=== PATIENT | female | born 1945 | race Caucasian/White ===

== ENCOUNTER 2017-08-22 10:58 | Inpatient (IN) | payer MEDICARE, MEDICAID ==
[~2017-08-22] VITALS: Ht 154.9 cm; Wt 68.9 kg
[~2017-08-22 10:58] MED LIST: ADVAIR 250-501 EACH INH; DESYREL100 MG PO; MACROBID100 MG ORAL; NEURONTIN300 MG PO; NORCO 10-325 T1 EACH ORAL; PROAIR HFA8.5 GM INH; SPIRIVA18 MCG INH
[2017-08-22 11:15] VITALS: BP 141/76
[2017-08-22] MEDS ORDERED: LORazepam Inj 2mg/ml 1ml IV ONE (11:15)
[2017-08-22] MEDS ORDERED: ASPIRIN325 MG ORAL (11:41)
[2017-08-22] MEDS ORDERED: VENTOLIN HFA18 GM INH (11:41)
[2017-08-22] MEDS ORDERED: ATORVASTATIN CA40 MG ORAL (11:41)
[2017-08-22] MEDS ORDERED: BUDESONIDE0.5 GM PO (11:41)
[2017-08-22] MEDS ORDERED: CLOPIDOGREL75 MG ORAL (11:41)
--- NOTE | 2017-08-22 11:49 | Diagnostic Imaging Report ---
Indication: Dyspnea Comparison: None A single view chest radiograph was obtained. Findings: Some vascular prominence noted centrally. The heart is borderline in size. The exam is limited by rotation. Bones are osteopenic. Aorta is calcified. IMPRESSION: Query mild CHF. Correlate clinically
[2017-08-22 12:15] LABS: BASOPHILS % (AUTO) 0.9 % (0.0-2.0); EOSINOPHILS % (AUTO) 3.1 % (0.0-3.0); HEMATOCRIT 40.6 % (37.0-47.0); LYMPHOCYTES % (AUTO) 15.3 % (20.0-45.0); MEAN CORPUSCULAR VOLUME 89 FL (80-99); MONOCYTES % (AUTO) 3.5 % (1.0-10.0); NEUTROPHILS % (AUTO) 77.2 % (45.0-75.0); PLATELET COUNT 220 K/UL (150-450); RED BLOOD COUNT 4.55 M/UL (4.20-5.40); RED CELL DISTRIBUTION WIDTH 12.8 % (11.6-14.8); WHITE BLOOD COUNT 8.3 K/UL (4.8-10.8)
[2017-08-22] MEDS ORDERED: Levalbuterol Inh UD 1.25mg/0.5ml HHN ONE (12:15)
[2017-08-22] MEDS ORDERED: Solu-MEDROL 125mg Inj IVP ONE (12:15)
[2017-08-22 12:21] LABS: ANION GAP 9 mmol/L (5-15); BLOOD UREA NITROGEN 34 mg/dL (7-18); CALCIUM 8.7 MG/DL (8.5-10.1); CARBON DIOXIDE 27 MMOL/L (21-32); CHLORIDE 103 MMOL/L (98-107); CREATININE 0.8 MG/DL (0.55-1.30); POTASSIUM 4.6 MMOL/L (3.5-5.1); SODIUM 139 MMOL/L (136-145)
[2017-08-22 12:35] LABS: ALANINE AMINOTRANSFERASE 30 U/L (12-78); ALBUMIN 3.8 G/DL (3.4-5.0); ALBUMIN/GLOBULIN RATIO 1.3 (1.0-2.7); ALKALINE PHOSPHATASE 89 U/L (46-116); ASPARTATE AMINO TRANSFERASE 39 U/L (15-37); BILIRUBIN,TOTAL 0.5 MG/DL (0.2-1.0); CKMB 18.4 NG/ML (0.0-3.6); CREATINE KINASE 205 U/L (26-308)
--- NOTE | 2017-08-22 12:58 | Emergency Room Report ---
History of Present Illness General Chief Complaint: General Complaint Source: Patient Present Illness HPI Patient presents with complaints of weakness Spasming of her lower extremities Patient reports that she has been to the emergency room several times with similar complaints She has a history of COPD and was having some shortness of breath as well Denies any chest pain or pleurisy Denies any vomiting Patient feels increased cramping in her legs on the spasming happens Reports that Ativan did help her symptoms however they have again returned Allergies: Coded Allergies: AMPICILLIN (Verified Allergy, Intermediate, 08/26/12) Patient History Past Medical History: see triage record Pertinent Family History: none Reviewed Nursing Documentation: PMH: Agreed; PSxH: Agreed Nursing Documentation-PMH Past Medical History: No History, Except For Hx Cardiac Problems: No Hx Hypertension: No Hx Pacemaker: No Hx Asthma: Yes Hx COPD: Yes Hx Diabetes: No Hx Cancer: Yes - Cervical Cancer Hx Gastrointestinal Problems: No Hx Dialysis: No Hx Neurological Problems: Yes - chronic back pain; ruptured disk Hx Cerebrovascular Accident: No Hx Seizures: No Review of Systems All Other Systems: negative except mentioned in HPI Physical Exam Vital Signs Date Time Temp Pulse Resp B/P (MAP) Pulse Ox O2 Delivery O2 Flow Rate FiO2 08/22/17 11:11 97.3 119 30 110/69 80 Nasal Cannula 3.0 97.3 Sp02 EP Interpretation: reviewed, normal General Appearance: mild distress - anxious and actively tremulous Head: normocephalic, atraumatic Eyes: bilateral eye PERRL, bilateral eye EOMI ENT: hearing grossly normal, normal pharynx, TMs + canals normal, uvula midline Neck: full range of motion, supple, no meningismus, no bony tend Respiratory: no respiratory distress, no retraction, no accessory muscle use, wheezing - bilaterally Cardiovascular #1: normal peripheral pulses, regular rate, rhythm, no edema, no gallop, no JVD, no murmur Gastrointestinal: normal bowel sounds, non tender, soft, no mass, no organomegaly, non-distended, no guarding, no hernia, no pulsatile mass, no rebound Genitourinary: no CVA tenderness Musculoskeletal: other - Patient has episodes of acute spasmodic contractures of lower extremity, at times her upper arms also spasm and contracted Neurologic: oriented x3, responsive, 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, motor strength/ tone normal, sensory intact Psychiatric: mood/affect normal Skin: normal color, no rash, warm/dry, palpation normal Lymphatic: normal inspection, no adenopathy Medical Decision Making Diagnostic Impression: Primary Impression: COPD exacerbation Additional Impression: Elevated troponin ER Course Patient is a fairly complex patient with multiple differential to consideration including but not limited to cardiac cardiopulmonary and vascular emergencies Patient's troponin level is elevated She denies any chest pain at this time Her spasming has improved with the benzodiazepine Patient does take breathing treatments for COPD possible reaction to albuterol however potassium level was normal patient provided with aspirin EKG does not reveal any ST elevations and patient will have inpatient admission and further care , Labs Test 08/22/17 11:24 08/22/17 11:57 Urine Opiates Screen Positive (NEGATIVE) Urine Barbiturates Screen Negative (NEGATIVE) Phencyclidine (PCP) Screen Negative (NEGATIVE) Urine Amphetamines Screen Negative (NEGATIVE) Urine Benzodiazepines Screen Negative (NEGATIVE) Urine Cocaine Screen Negative (NEGATIVE) Urine Marijuana (THC) Screen Negative (NEGATIVE) White Blood Count 8.3 K/UL (4.8-10.8) Red Blood Count 4.55 M/UL (4.20-5.40) Hemoglobin 13.0 G/DL (12.0-16.0) Hematocrit 40.6 % (37.0-47.0) Mean Corpuscular Volume 89 FL (80-99) Mean Corpuscular Hemoglobin 28.6 PG (27.0-31.0) Mean Corpuscular Hemoglobin Concent 32.1 G/DL (32.0-36.0) Red Cell Distribution Width 12.8 % (11.6-14.8) Platelet Count 220 K/UL (150-450) Mean Platelet Volume 6.4 FL (6.5-10.1) Neutrophils (%) (Auto) 77.2 % (45.0-75.0) Lymphocytes (%) (Auto) 15.3 % (20.0-45.0) Monocytes (%) (Auto) 3.5 % (1.0-10.0) Eosinophils (%) (Auto) 3.1 % (0.0-3.0) Basophils (%) (Auto) 0.9 % (0.0-2.0) Sodium Level 139 MMOL/L (136-145) Potassium Level 4.6 MMOL/L (3.5-5.1) Chloride Level 103 MMOL/L (98-107) Carbon Dioxide Level 27 MMOL/L (21-32) Anion Gap 9 mmol/L (5-15) Blood Urea Nitrogen 34 mg/dL (7-18) Creatinine 0.8 MG/DL (0.55-1.30) Estimat Glomerular Filtration Rate mL/min (>60) Glucose Level 125 MG/DL (74-106) Calcium Level 8.7 MG/DL (8.5-10.1) Total Bilirubin 0.5 MG/DL (0.2-1.0) Aspartate Amino Transf (AST/SGOT) 39 U/L (15-37) Alanine Aminotransferase (ALT/SGPT) 30 U/L (12-78) Alkaline Phosphatase 89 U/L (46-116) Total Creatine Kinase 205 U/L (26-308) Creatine Kinase MB 18.4 NG/ML (0.0-3.6) Creatine Kinase MB Relative Index 8.9 Troponin I 1.651 ng/mL (0.000-0.056) Total Protein 6.8 G/DL (6.4-8.2) Albumin 3.8 G/DL (3.4-5.0) Globulin 3.0 g/dL Albumin/Globulin Ratio 1.3 (1.0-2.7) EKG Diagnostic Results Rate: normal Rhythm: NSR ST Segments: other - nnonspecific ST changes Rhythm Strip Diag. Results EP Interpretation: yes Rate: 77 Rhythm: NSR, no PVC's, no ectopy Chest X-Ray Diagnostic Results Chest X-Ray Diagnostic Results : Chest X-Ray Ordered: Yes # of Views/Limited/Complete: 1 View Indication: Chest Pain EP Interpretation: Yes Interpretation: no consolidation, no pneumothorax, other - Borderline cardiomegaly, mild congestion, questionable effusion left lower lobe Impression: Other - mmild congestion Electronically Signed by: Iveth Fairbanks DO Last Vital Signs Date Time Temp Pulse Resp B/P (MAP) Pulse Ox O2 Delivery O2 Flow Rate FiO2 08/22/17 12:45 85 21 92 Nasal Cannula 3.0 08/22/17 11:15 141/76 08/22/17 11:11 97.3 97.3 Status: improved Disposition: ADMITTED INPATIENT Condition: Serious Iveth Fairbanks DO August 22, 2017 12:58
[2017-08-22 14:58] VITALS: BP 116/42
[2017-08-22] MEDS ORDERED: LORazepam Inj 2mg/ml 1ml IV PRN (16:00)
[2017-08-22] MEDS ORDERED: Albuterol ud Inhalation HHN PRN (16:00)
--- NOTE | 2017-08-22 16:20 | Cardiac Electrophysiology PN ---
Subjective Subjective [id number] Objective Last 24 Hour Vital Signs Date Time Temp Pulse Resp B/P (MAP) Pulse Ox O2 Delivery O2 Flow Rate FiO2 08/22/17 14:58 97.0 86 18 116/42 94 Nasal Cannula 3.0 97.0 08/22/17 13:00 79 16 100 Nasal Cannula 3.0 08/22/17 12:45 85 21 92 Nasal Cannula 3.0 08/22/17 12:44 85 21 Nasal Cannula 3.0 08/22/17 11:15 100 18 141/76 92 Nasal Cannula 3.0 08/22/17 11:11 97.3 119 30 110/69 80 Nasal Cannula 3.0 97.3 Laboratory Tests Test 08/22/17 11:24 08/22/17 11:57 Urine Opiates Screen Positive (NEGATIVE) H Urine Barbiturates Screen Negative (NEGATIVE) Phencyclidine (PCP) Screen Negative (NEGATIVE) Urine Amphetamines Screen Negative (NEGATIVE) Urine Benzodiazepines Screen Negative (NEGATIVE) Urine Cocaine Screen Negative (NEGATIVE) Urine Marijuana (THC) Screen Negative (NEGATIVE) White Blood Count 8.3 K/UL (4.8-10.8) Red Blood Count 4.55 M/UL (4.20-5.40) Hemoglobin 13.0 G/DL (12.0-16.0) Hematocrit 40.6 % (37.0-47.0) Mean Corpuscular Volume 89 FL (80-99) Mean Corpuscular Hemoglobin 28.6 PG (27.0-31.0) Mean Corpuscular Hemoglobin Concent 32.1 G/DL (32.0-36.0) Red Cell Distribution Width 12.8 % (11.6-14.8) Platelet Count 220 K/UL (150-450) Mean Platelet Volume 6.4 FL (6.5-10.1) L Neutrophils (%) (Auto) 77.2 % (45.0-75.0) H Lymphocytes (%) (Auto) 15.3 % (20.0-45.0) L Monocytes (%) (Auto) 3.5 % (1.0-10.0) Eosinophils (%) (Auto) 3.1 % (0.0-3.0) H Basophils (%) (Auto) 0.9 % (0.0-2.0) Sodium Level 139 MMOL/L (136-145) Potassium Level 4.6 MMOL/L (3.5-5.1) Chloride Level 103 MMOL/L (98-107) Carbon Dioxide Level 27 MMOL/L (21-32) Anion Gap 9 mmol/L (5-15) Blood Urea Nitrogen 34 mg/dL (7-18) H Creatinine 0.8 MG/DL (0.55-1.30) Estimat Glomerular Filtration Rate mL/min (>60) Glucose Level 125 MG/DL (74-106) H Calcium Level 8.7 MG/DL (8.5-10.1) Total Bilirubin 0.5 MG/DL (0.2-1.0) Aspartate Amino Transf (AST/SGOT) 39 U/L (15-37) H Alanine Aminotransferase (ALT/SGPT) 30 U/L (12-78) Alkaline Phosphatase 89 U/L (46-116) Total Creatine Kinase 205 U/L (26-308) Creatine Kinase MB 18.4 NG/ML (0.0-3.6) H Creatine Kinase MB Relative Index 8.9 Troponin I 1.651 ng/mL (0.000-0.056) Total Protein 6.8 G/DL (6.4-8.2) Albumin 3.8 G/DL (3.4-5.0) Globulin 3.0 g/dL Albumin/Globulin Ratio 1.3 (1.0-2.7) Ramesh Han MD August 22, 2017 16:20
--- NOTE | 2017-08-22 18:15 | Consultation ---
DATE OF CONSULTATION: 08/22/2017 CARDIOLOGY CONSULTATION CONSULTING PHYSICIAN: Ramesh Han M.D. REFERRING PHYSICIAN: Omid Simmons M.D. REASON FOR CONSULTATION: Management of abnormal EKG suggestive of inferior wall ischemia. HISTORY OF PRESENT ILLNESS: The patient is a 71-year-old lady with history of chronic obstructive pulmonary disease and severe back pain and is on multiple analgesics at home. The patient has been to emergency room several times with similar complaints per the ER attending notes. The patient denies any chest pain, syncope, nausea, vomiting, or diaphoresis. The patient was admitted and Cardiology consultation was obtained for further evaluation and management. PAST MEDICAL HISTORY: 1. Chronic obstructive pulmonary disease. 2. History of severe back pain. 3. History of cervical cancer. MEDICATIONS: Per reconciliation. ALLERGIES: She is allergic to ampicillin. FAMILY HISTORY: Noncontributory. REVIEW OF SYSTEMS: Performed and was negative other than what was mentioned in the history of present illness. PHYSICAL EXAMINATION: VITAL SIGNS: Blood pressure 110/67, pulse 110, respirations 18, and she is afebrile. HEAD AND NECK: Shows no JVD or carotid bruits. LUNGS: Clear. CARDIOVASCULAR: Regular S1 and S2 with no gallop or murmur. ABDOMEN: Soft. EXTREMITIES: Without pitting edema. LABORATORY AND DIAGNOSTIC DATA: EKG shows sinus rhythm with inferior T-wave inversions suggestive of ischemia. LABORATORY DATA: Labs show white count of 8.2, hemoglobin 13, hematocrit of 40, and platelet count is 220,000. Sodium 139, potassium 4.3, BUN of 34, creatinine 0.8, and glucose of 125. Troponin is 1.65. ASSESSMENT AND PLAN: 1. Pol-HA-ledjezjry myocardial infarction by elevated troponin of 1.65 for T-wave inversion. However, the patient presents without any chest pain and her major complaint is low back pain. She is also complaining of bilateral unsteady feet. We will repeat the cardiac enzymes and get an echocardiogram. In the meantime, I will keep the patient on aspirin, Plavix, Lipitor, and add beta-angelina to her medical regimen. 2. Chronic obstructive pulmonary disease. 3. Severe back pain with questionable disc rupture history. On analgesics. Thank you very much, Dr. Simmons, for allowing me to participate in the care of this patient. Please do not hesitate to contact me for any questions regarding my evaluation. Ramesh Han M.D. DR: ANA JOB#: [id number] CC:
--- NOTE | 2017-08-22 19:15 | History and Physical Report ---
DATE OF ADMISSION: 08/22/2017 REASON FOR ADMISSION: 1. Mild shortness of breath. 2. Elevated troponin. HISTORY OF PRESENT ILLNESS: The patient is a 71-year-old female, who sees Dr. Omid Simmons on a consistent basis. The patient presented to the emergency room complaining of several days of spasms in her lower legs. The patient had presented to the emergency room several times with complaints of spasms in her lower legs. She has known COPD. She was mildly short of breath. Her main complaint and concern is that her lower extremity/legs have been undergoing some spasms. She denies any current chest pain. No nausea, vomiting, or diarrhea. PAST MEDICAL HISTORY: 1. Hypertension. 2. Coronary artery disease. 3. Hyperlipidemia. 4. COPD. PAST SURGICAL HISTORY: Noncontributory. ALLERGIES: Ampicillin. REVIEW OF SYSTEMS: NEUROLOGIC: The patient denies headache, change in vision, syncope, or presyncopal episodes. CARDIOVASCULAR: No current chest pain, palpitations, or angina. PULMONARY: Mild shortness of breath. Nonproductive cough. GASTROINTESTINAL/GENITOURINARY: No change in urine or bowels habits. No nausea, vomiting or diarrhea. ENDOCRINOLOGY: No night sweats, fevers or chills. MUSCULOSKELETAL: The patient complaining of lower extremity legs periodic spasms. PHYSICAL EXAMINATION: GENERAL: The patient is awake, slightly agitated. VITAL SIGNS: Blood pressure 116/42, respiratory rate 18, temperature 97.0 degrees and 94% on 3 liters nasal cannula. HEENT: Extraocular muscles intact. No lymphadenopathy noted. CARDIOVASCULAR: S1 and S2. No rubs or gallops. PULMONARY: Mild diffuse expiratory wheezing. ABDOMEN: Nondistended and nontender. EXTREMITIES: No edema. SKIN: No rash. LABORATORY AND DIAGNOSTIC DATA: Labs dated 08/22/2017, sodium 139, potassium 4.6, BUN 34, and creatinine 0.8. Calcium 8.7. AST 39 and ALT 30. Troponin I of 1.651. Hemoglobin 13, white cell count 8.3, and platelet count 320. ASSESSMENT AND PLAN: 1. Mild shortness of breath. At this time, the patient does have underlying chronic obstructive pulmonary disease. We will continue inhaler therapy along with consultation to Pulmonary for further evaluation and management. 2. Elevated troponin, currently 1.65. At this time, Cardiology, Dr. Han has been consulted for further evaluation and management. We will continue home doses of aspirin and Plavix, BB and statin. Ant ischemia from EKG possibly noted 3. Hypertension. Continue said regimen. Adjust medications as deemed appropriate. 4. Lower extremity spasms. As I walked to the room, the patient is lying comfortable in no distress. When she saw me coming from behind, she started moving her legs saying that her legs were hurting and that she needed pain medication for her lower extremities. At this time, we will continue to monitor. 5. Deep venous thrombosis prophylaxis with heparin subcutaneous. Dev Silverman MD DR: BRYON JOB#: [id number] CC: RAJINDER
[2017-08-22 20:00] VITALS: BP 136/67
[2017-08-22] MEDS: rOPINIRole 0.25mg tab ORAL SCH (20:31)
[2017-08-22] MEDS: Docusate 100mg cap ORAL SCH (20:32)
[2017-08-22] MEDS: Metoprolol 25mg tab ORAL SCH (20:33)
[2017-08-22] MEDS: Atorvastatin 20mg tab ORAL SCH (20:33)
[2017-08-22] MEDS: TraZODone 100mg tab ORAL SCH (20:34)
[2017-08-22] MEDS: Norco 5mg/325mg tab ORAL PRN (21:26)
[2017-08-22] MEDS: Heparin 5000 units/ml inj SUBQ SCH (21:28)
[2017-08-22] MEDS: Albuterol/Ipratropium 3ml neb HHN SCH (21:31)
[2017-08-23] VITALS: BP 132/60
[2017-08-23 03:33] LABS: BASOPHILS % (AUTO) 1.2 % (0.0-2.0); HEMATOCRIT 39.7 % (37.0-47.0); HEMOGLOBIN 12.8 G/DL (12.0-16.0); LYMPHOCYTES % (AUTO) 23.7 % (20.0-45.0); MEAN CORPUSCULAR VOLUME 89 FL (80-99); MONOCYTES % (AUTO) 9.1 % (1.0-10.0); NEUTROPHILS % (AUTO) 65.9 % (45.0-75.0); PLATELET COUNT 194 K/UL (150-450); RED BLOOD COUNT 4.48 M/UL (4.20-5.40); RED CELL DISTRIBUTION WIDTH 12.6 % (11.6-14.8)
[2017-08-23 03:53] LABS: ANION GAP 5 mmol/L (5-15); BLOOD UREA NITROGEN 30 mg/dL (7-18); CALCIUM 8.4 MG/DL (8.5-10.1); CARBON DIOXIDE 29 MMOL/L (21-32); CHLORIDE 106 MMOL/L (98-107); CHOLESTEROL 159 MG/DL (< 200); CREATINE KINASE 125 U/L (26-308); CREATININE 0.5 MG/DL (0.55-1.30); HDL CHOLESTEROL 75 MG/DL (40-60); POTASSIUM 4.8 MMOL/L (3.5-5.1); SODIUM 140 MMOL/L (136-145); TRIGLYCERIDES 62 MG/DL (30-150)
[2017-08-23 04:00] VITALS: BP 126/59
[2017-08-23] MEDS: Norco 5mg/325mg tab ORAL PRN ×2 (04:24→18:44)
[2017-08-23] MEDS: Heparin 5000 units/ml inj SUBQ SCH ×3 (06:32→21:21)
[2017-08-23 08:00] VITALS: BP 140/75
--- NOTE | 2017-08-23 08:09 | Nephrology Progress Note ---
Assessment/Plan Assessment/Plan 1. Restless Leg- requip started. Resolved - will leave Rx at time of DC 2. ACS- elevated Trop I - will DC patient once cleared by Cardiology as Trop I still elevated but trending down - ASA/BB/statin and Plavix 3. HTN- stable 4. DVT Prophylaxis- heparin sub q Subjective Date patient seen: August 23, 2017 Time patient seen: 08:06 ROS Limited/Unobtainable: No Allergies: Coded Allergies: AMPICILLIN (Verified Allergy, Intermediate, 08/26/12) All Systems: reviewed and negative except above Subjective Patient feeling much better. Legs have stopped restless motion Objective Last 24 Hour Vital Signs Date Time Temp Pulse Resp B/P (MAP) Pulse Ox O2 Delivery O2 Flow Rate FiO2 08/23/17 04:00 66 08/23/17 04:00 97.3 84 20 126/59 96 Nasal Cannula 3.0 97.3 08/23/17 00:00 96.3 87 20 132/60 96 Nasal Cannula 3.0 96.3 08/23/17 00:00 71 08/22/17 21:44 75 18 99 Nasal Cannula 3.0 32 08/22/17 21:34 Nasal Cannula 3.0 32 08/22/17 21:34 96 Nasal Cannula 3.0 32 08/22/17 21:34 75 18 96 Nasal Cannula 3.0 32 08/22/17 20:33 92 136/67 08/22/17 20:00 87 08/22/17 20:00 97.5 92 22 136/67 94 Nasal Cannula 3.0 97.5 08/22/17 16:22 104 08/22/17 16:20 97.0 86 18 116/42 94 Nasal Cannula 3.0 97.0 08/22/17 14:58 97.0 86 18 116/42 94 Nasal Cannula 3.0 97.0 08/22/17 13:00 79 16 100 Nasal Cannula 3.0 08/22/17 12:45 85 21 92 Nasal Cannula 3.0 08/22/17 12:44 85 21 Nasal Cannula 3.0 08/22/17 11:15 100 18 141/76 92 Nasal Cannula 3.0 08/22/17 11:11 97.3 119 30 110/69 80 Nasal Cannula 3.0 97.3 Intake and Output 08/22/17 08/23/17 19:00 07:00 Intake Total 120 ml 120 ml Output Total 250 ml 1 ml Balance -130 ml 119 ml Intake Oral 120 ml 120 ml Output Urine Total 250 ml Stool Total 1 ml # Voids 2 # Bowel Movements 1 2 Laboratory Tests 08/22/17 11:24: Urine Opiates Screen PositiveH, Urine Barbiturates Screen Negative, Phencyclidine (PCP) Screen Negative, Urine Amphetamines Screen Negative, Urine Benzodiazepines Screen Negative, Urine Cocaine Screen Negative, Urine Marijuana (THC) Screen Negative 08/22/17 11:57: White Blood Count 8.3, Red Blood Count 4.55, Hemoglobin 13.0, Hematocrit 40.6, Mean Corpuscular Volume 89, Mean Corpuscular Hemoglobin 28.6, Mean Corpuscular Hemoglobin Concent 32.1, Red Cell Distribution Width 12.8, Platelet Count 220, Mean Platelet Volume 6.4L, Neutrophils (%) (Auto) 77.2H, Lymphocytes (%) (Auto) 15.3L, Monocytes (%) (Auto) 3.5, Eosinophils (%) (Auto) 3.1H, Basophils (%) ( Auto) 0.9, Sodium Level 139, Potassium Level 4.6, Chloride Level 103, Carbon Dioxide Level 27, Anion Gap 9, Blood Urea Nitrogen 34H, Creatinine 0.8, Estimat Glomerular Filtration Rate , Glucose Level 125H, Calcium Level 8.7, Total Bilirubin 0.5, Aspartate Amino Transf (AST/SGOT) 39H, Alanine Aminotransferase ( ALT/SGPT) 30, Alkaline Phosphatase 89, Total Creatine Kinase 205, Creatine Kinase MB 18.4H, Creatine Kinase MB Relative Index 8.9, Troponin I 1.651H, Total Protein 6.8, Albumin 3.8, Globulin 3.0, Albumin/Globulin Ratio 1.3 08/22/17 19:15: Troponin I 1.419H 08/23/17 03:00: White Blood Count 6.0, Red Blood Count 4.48, Hemoglobin 12.8, Hematocrit 39.7, Mean Corpuscular Volume 89, Mean Corpuscular Hemoglobin 28.5, Mean Corpuscular Hemoglobin Concent 32.1, Red Cell Distribution Width 12.6, Platelet Count 194, Mean Platelet Volume 6.2L, Neutrophils (%) (Auto) 65.9, Lymphocytes (%) (Auto) 23.7, Monocytes (%) (Auto) 9.1, Eosinophils (%) (Auto) 0.0, Basophils (%) (Auto ) 1.2, Sodium Level 140, Potassium Level 4.8, Chloride Level 106, Carbon Dioxide Level 29, Anion Gap 5, Blood Urea Nitrogen 30H, Creatinine 0.5L, Estimat Glomerular Filtration Rate , Glucose Level 138H, Calcium Level 8.4L, Total Creatine Kinase 125, Troponin I 0.994H, Triglycerides Level 62, Cholesterol Level 159, LDL Cholesterol 69, HDL Cholesterol 75H, Cholesterol/HDL Ratio 2.1L Height (Feet): 5 Height (Inches): 1.00 Weight (Pounds): 152 General Appearance: no apparent distress, alert EENT: normal ENT inspection, TMs normal Neck: normal alignment, supple Cardiovascular: normal rate, regular rhythm Respiratory/Chest: lungs clear, normal breath sounds Abdomen: non tender, soft Edema: no edema noted Arm (L), no edema noted Arm (R), no edema noted Leg (L), no edema noted Leg (R), no edema noted Pedal (L), no edema noted Pedal (R), no edema noted Generalized Dev Silverman M.D. August 23, 2017 08:09
[2017-08-23] MEDS: Aspirin Baby 81mg ORAL SCH (08:30)
[2017-08-23] MEDS: Metoprolol 25mg tab ORAL SCH ×2 (08:31→20:12)
[2017-08-23] MEDS: rOPINIRole 0.25mg tab ORAL SCH (08:31)
[2017-08-23] MEDS: Docusate 100mg cap ORAL SCH ×2 (08:35→20:11)
--- NOTE | 2017-08-23 09:30 | Consultation ---
DATE OF CONSULTATION: 08/23/2017 PULMONARY CONSULTATION CONSULTING PHYSICIAN: José Brown M.D. REFERRING PHYSICIAN: Dev Silverman M.D. REASON FOR CONSULTATION: COPD with acute exacerbation. HISTORY OF PRESENT ILLNESS: The patient is a 71-year-old female, the patient presented through the ER with leg pain. The patient also presented with shortness of breath. The patient is now being admitted for further care, management, and further evaluation. The patient's care discussed and primary care doctor asked me to kindly evaluate and recommend further. The patient admits to mild cough and mild congestion. The patient does take inhalers on a regular basis at home. The patient has had no falls or trauma. No chest discomfort. X-rays obtained in the emergency room shows possibility of mild pulmonary vascular congestion. The patient's troponin, however, was also elevated on evaluation. PAST MEDICAL HISTORY: Hypertension, coronary artery disease, hyperlipidemia, and COPD. PAST SURGICAL HISTORY: Noncontributory. MEDICATIONS: Reviewed. ALLERGIES: Reviewed. FAMILY HISTORY: Otherwise negative and noncontributory to the above. REVIEW OF SYSTEMS: All 10 points reviewed and otherwise negative. PHYSICAL EXAMINATION: GENERAL: A well-developed female, comfortable at present. The patient is of advanced age, but otherwise clinically stable. VITAL SIGNS: Notable for blood pressure 126/59, pulse 84, temperature 97.3, and saturations 96% on 3 liters. The patient is currently afebrile 97.4. HEENT: Overall negative. The patient's extraocular movements are grossly intact. NECK: No jugular venous distention. LUNGS: Moderate breath sounds. Occasional rhonchi scattered. No clear wheezes. CARDIAC: Normal S1 and S2. Regular rhythm without murmurs, rubs, or gallops. ABDOMEN: Soft, nontender, nondistended. EXTREMITIES: No cyanosis, clubbing, or edema. NEUROLOGIC: Grossly nonfocal. SKIN: Without any rashes. LABORATORY AND DIAGNOSTIC DATA: Laboratory data reviewed. BUN 30 and creatinine 0.5. Troponins are elevated, highest 1.651. The CBC is essentially normal. The urine tox screen positive for opioids. The x-ray is notable for mild edema. IMPRESSION: 1. COPD. 2. Respiratory insufficiency. 3. Mild congestion, possibly acute on chronic congestive heart failure. 4. Elevated troponin. 5. Possible non-STEMI. 6. Lower extremity spasm. RECOMMENDATION: Supportive care. Monitor clinically. Respiratory care. The patient is placed on albuterol. Pain control. Venous ultrasound to confirm negative DVT. DVT Prophylaxis. IV steroids as needed, but no further dosing noted for now, follow clinically. Outpatient pulmonary function testing recommended and we will follow up clinically for further changes and intervention. We will monitor for further optimization and assist with discharge planning. José Brown M.D. DR: GABE JOB#: [id number] CC:
[2017-08-23] MEDS: Albuterol/Ipratropium 3ml neb HHN SCH ×2 (09:51→22:30)
[2017-08-23] MEDS ORDERED: LORazepam 1mg tab ORAL ONE (11:46)
[2017-08-23 12:00] VITALS: BP 138/67
--- NOTE | 2017-08-23 13:42 | Cardiac Electrophysiology PN ---
Assessment/Plan Assessment/Plan 1. [id number] myocardial infarction by elevated troponins of 1.65,1.44, 0.99 and T-wave inversion. However, the patient never had any chest pain and her major complaint is low back pain. Continue aspirin, Plavix, Lipitor, and Lopressor 25 bid Final echo is pending. DW patient the option of cardiac cath with RN present. She refuses cath. Continue medical therapy and possible stress test. 2. Chronic obstructive pulmonary disease. 3. Severe back pain with questionable disc rupture history. On analgesics. MARYANN RN Subjective Subjective Says wants to go home. No CP or SOB. Objective Last 24 Hour Vital Signs Date Time Temp Pulse Resp B/P (MAP) Pulse Ox O2 Delivery O2 Flow Rate FiO2 08/23/17 10:11 89 20 99 Nasal Cannula 3.0 32 08/23/17 09:53 Nasal Cannula 3.0 32 08/23/17 09:51 84 20 95 Nasal Cannula 3.0 32 08/23/17 09:47 95 Nasal Cannula 3.0 32 08/23/17 08:31 72 140/75 08/23/17 04:00 66 08/23/17 04:00 97.3 84 20 126/59 96 Nasal Cannula 3.0 97.3 08/23/17 00:00 96.3 87 20 132/60 96 Nasal Cannula 3.0 96.3 08/23/17 00:00 71 08/22/17 21:44 75 18 99 Nasal Cannula 3.0 32 08/22/17 21:34 Nasal Cannula 3.0 32 08/22/17 21:34 96 Nasal Cannula 3.0 32 08/22/17 21:34 75 18 96 Nasal Cannula 3.0 32 08/22/17 20:33 92 136/67 08/22/17 20:00 87 08/22/17 20:00 97.5 92 22 136/67 94 Nasal Cannula 3.0 97.5 08/22/17 16:22 104 08/22/17 16:20 97.0 86 18 116/42 94 Nasal Cannula 3.0 97.0 08/22/17 14:58 97.0 86 18 116/42 94 Nasal Cannula 3.0 97.0 Intake and Output 08/22/17 08/23/17 19:00 07:00 Intake Total 120 ml 120 ml Output Total 250 ml 1 ml Balance -130 ml 119 ml Intake Oral 120 ml 120 ml Output Urine Total 250 ml Stool Total 1 ml # Voids 2 # Bowel Movements 1 2 Laboratory Tests Test 08/22/17 19:15 08/23/17 03:00 Troponin I 1.419 ng/mL (0.000-0.056) 0.994 ng/mL (0.000-0.056) White Blood Count 6.0 K/UL (4.8-10.8) Red Blood Count 4.48 M/UL (4.20-5.40) Hemoglobin 12.8 G/DL (12.0-16.0) Hematocrit 39.7 % (37.0-47.0) Mean Corpuscular Volume 89 FL (80-99) Mean Corpuscular Hemoglobin 28.5 PG (27.0-31.0) Mean Corpuscular Hemoglobin Concent 32.1 G/DL (32.0-36.0) Red Cell Distribution Width 12.6 % (11.6-14.8) Platelet Count 194 K/UL (150-450) Mean Platelet Volume 6.2 FL (6.5-10.1) L Neutrophils (%) (Auto) 65.9 % (45.0-75.0) Lymphocytes (%) (Auto) 23.7 % (20.0-45.0) Monocytes (%) (Auto) 9.1 % (1.0-10.0) Eosinophils (%) (Auto) 0.0 % (0.0-3.0) Basophils (%) (Auto) 1.2 % (0.0-2.0) Sodium Level 140 MMOL/L (136-145) Potassium Level 4.8 MMOL/L (3.5-5.1) Chloride Level 106 MMOL/L (98-107) Carbon Dioxide Level 29 MMOL/L (21-32) Anion Gap 5 mmol/L (5-15) Blood Urea Nitrogen 30 mg/dL (7-18) H Creatinine 0.5 MG/DL (0.55-1.30) L Estimat Glomerular Filtration Rate mL/min (>60) Glucose Level 138 MG/DL (74-106) H Calcium Level 8.4 MG/DL (8.5-10.1) L Total Creatine Kinase 125 U/L (26-308) Triglycerides Level 62 MG/DL (30-150) Cholesterol Level 159 MG/DL (< 200) LDL Cholesterol 69 mg/dL (<100) HDL Cholesterol 75 MG/DL (40-60) H Cholesterol/HDL Ratio 2.1 (3.3-4.4) L Objective HEAD AND NECK: No JVD or carotid bruits. LUNGS: Clear. CARDIOVASCULAR: Regular S1 and S2 with no gallop or murmur. ABDOMEN: Soft. EXTREMITIES: No pitting edema. Ramesh Han MD August 23, 2017 13:42
[2017-08-23 16:00] VITALS: BP 125/63
[2017-08-23 20:00] VITALS: BP 146/74
[2017-08-23] MEDS: TraZODone 100mg tab ORAL SCH (20:11)
[2017-08-23] MEDS: Atorvastatin 20mg tab ORAL SCH (20:11)
--- NOTE | 2017-08-23 22:33 | Cardiology Report ---
APPROVED REPORT EKG Measurement Heart [id number] Normal sinus rhythm T wave abnormality, consider anterior ischemia Abnormal ECG
--- NOTE | 2017-08-23 23:30 | Consultation ---
DATE OF CONSULTATION: 08/23/2017 CONSULTING PHYSICIAN: Adele Hernandez M.D. HISTORY OF PRESENT ILLNESS: This is a 71-year-old female with a history of anxiety disorder, hypertension, coronary artery disease, hyperlipidemia, COPD and restless legs syndrome, who has been admitted to the hospital for medical stabilization. The patient was recently started on Requip. Apparently, medication initially helped her, however, she stated now she is having more anxiety and more shakes. The patient was having anxiety attacks before the ultrasound today and her whole body was shaking. Ativan was ordered, however, it was not given as the patient after having the panic attacks fell asleep. PAST PSYCHIATRIC HISTORY: She has a history of depression, anxiety, and given trazodone 100 mg at bedtime. No suicidal attempt in the past. No history of violence. PAST MEDICAL HISTORY: UTI, chronic back pain, COPD, elevated troponin, anxiety disorder and depression. ALLERGIES: Penicillin. SUBSTANCE ABUSE HISTORY: No known history of illicit drug use or alcohol. MENTAL STATUS EXAMINATION: The patient is alert and oriented times self, place, and situation. Mood is anxious. Affect is constricted, congruent with mood. Thought process is concrete. Thought content, no suicidal or homicidal ideation. ASSESSMENT: [place] I Anxiety disorder, panic attack. [place] II Deferred. [place] III Restless legs syndrome. [place] IV Low. [place] V Global assessment of functioning is 50. PLAN: 1. The patient will be started on Ativan p.r.n. We will discontinue the Requip. We will discuss with Dr. Silverman. 2. We will continue to follow and readjust the medications. Adele Hernandez M.D. DR: JOHNNY JOB#: [id number] CC:
[2017-08-24] VITALS: BP 141/70
[2017-08-24 04:00] VITALS: BP 129/80
[2017-08-24] MEDS: Norco 5mg/325mg tab ORAL PRN ×3 (05:15→20:27)
[2017-08-24] MEDS: Heparin 5000 units/ml inj SUBQ SCH ×3 (06:26→22:00)
[2017-08-24 08:00] VITALS: BP 138/53
--- NOTE | 2017-08-24 08:38 | Nephrology Progress Note ---
Assessment/Plan Assessment/Plan 1. Restless Leg- Improved on requip, has been DC. Poss to start 0.25mg qd and monitor as patient on [place] - defer management to PSY with anxiolytics and narcotics 2. ACS- elevated Trop I. Patient declined cardiac cath. Once cleared by cardiology will DC patient - ASA/BB/statin and Plavix - LE US results pending to r/o DVT 3. HTN- stable 4. DVT Prophylaxis- heparin sub q Subjective Date patient seen: August 24, 2017 Time patient seen: 08:27 ROS Limited/Unobtainable: No Neurologic/Psychiatric: Reports: anxiety Allergies: Coded Allergies: AMPICILLIN (Verified Allergy, Intermediate, 08/26/12) All Systems: reviewed and negative except above Subjective Patient was overwhelmed yesterday with procedures (ECHO/LE US) and had anxiety attack Objective Last 24 Hour Vital Signs Date Time Temp Pulse Resp B/P (MAP) Pulse Ox O2 Delivery O2 Flow Rate FiO2 08/24/17 04:00 97.3 62 19 129/80 98 Nasal Cannula 3.0 97.3 08/24/17 04:00 53 08/24/17 00:00 96.6 68 22 141/70 97 Nasal Cannula 3.0 96.6 08/24/17 00:00 58 08/23/17 22:41 64 18 99 Nasal Cannula 3.0 32 08/23/17 22:30 59 16 99 Nasal Cannula 3.0 32 08/23/17 22:30 Nasal Cannula 3.0 32 08/23/17 22:30 99 Nasal Cannula 3.0 32 08/23/17 20:12 63 146/74 08/23/17 20:00 66 08/23/17 20:00 97.3 63 20 146/74 96 Nasal Cannula 3.0 97.3 08/23/17 16:00 61 08/23/17 16:00 98.0 62 20 125/63 95 Nasal Cannula 3.0 98.0 08/23/17 12:00 65 08/23/17 12:00 97.8 76 20 138/67 95 Nasal Cannula 3.0 97.8 08/23/17 10:11 89 20 99 Nasal Cannula 3.0 32 08/23/17 09:53 Nasal Cannula 3.0 32 08/23/17 09:51 84 20 95 Nasal Cannula 3.0 32 08/23/17 09:47 95 Nasal Cannula 3.0 32 08/23/17 08:31 72 140/75 Intake and Output 08/23/17 08/24/17 19:00 07:00 Intake Total 720 ml Balance 720 ml Intake Oral 720 ml # Voids 4 # Bowel Movements 4 1 Height (Feet): 5 Height (Inches): 1.00 Weight (Pounds): 152 General Appearance: no apparent distress EENT: normal ENT inspection, TMs normal Neck: normal alignment, supple Cardiovascular: normal rate, regular rhythm Respiratory/Chest: lungs clear, normal breath sounds Abdomen: non tender, soft Edema: no edema noted Arm (L), no edema noted Arm (R), no edema noted Leg (L), no edema noted Leg (R), no edema noted Pedal (L), no edema noted Pedal (R), no edema noted Generalized Dev Silverman M.D. August 24, 2017 08:38
[2017-08-24] MEDS: Docusate 100mg cap ORAL SCH ×2 (08:43→20:31)
[2017-08-24] MEDS: Aspirin Baby 81mg ORAL SCH (08:43)
[2017-08-24] MEDS: LORazepam 1mg tab ORAL PRN ×2 (08:44→17:25)
[2017-08-24] MEDS: Metoprolol 25mg tab ORAL SCH ×2 (08:44→20:32)
[2017-08-24] MEDS: Albuterol/Ipratropium 3ml neb HHN SCH ×2 (09:31→23:05)
[2017-08-24 10:28] LABS: BASOPHILS % (AUTO) 1.5 % (0.0-2.0); EOSINOPHILS % (AUTO) 4.4 % (0.0-3.0); HEMATOCRIT 40.6 % (37.0-47.0); HEMOGLOBIN 13.2 G/DL (12.0-16.0); LYMPHOCYTES % (AUTO) 32.6 % (20.0-45.0); MEAN CORPUSCULAR VOLUME 89 FL (80-99); MONOCYTES % (AUTO) 6.6 % (1.0-10.0); NEUTROPHILS % (AUTO) 54.8 % (45.0-75.0); PLATELET COUNT 208 K/UL (150-450); RED BLOOD COUNT 4.58 M/UL (4.20-5.40); RED CELL DISTRIBUTION WIDTH 12.8 % (11.6-14.8); WHITE BLOOD COUNT 9.4 K/UL (4.8-10.8)
[2017-08-24 10:37] LABS: ANION GAP 7 mmol/L (5-15); BLOOD UREA NITROGEN 24 mg/dL (7-18); CALCIUM 8.3 MG/DL (8.5-10.1); CARBON DIOXIDE 29 MMOL/L (21-32); CHLORIDE 105 MMOL/L (98-107); CREATININE 0.6 MG/DL (0.55-1.30); POTASSIUM 3.5 MMOL/L (3.5-5.1); SODIUM 141 MMOL/L (136-145)
[2017-08-24 12:00] VITALS: BP 118/42
--- NOTE | 2017-08-24 12:07 | Physician Query ---
--------- THIS DOCUMENT IS A PERMANENT PART OF THE MEDICAL RECORD --------- PLEASE COMPLETE THE FORM BEFORE SIGNING Dear Dr. Brown Date 08/24/17 Phy Therapist/CDS: Yu Jaime Phy Therapist/CDS Phone #: [phone] Exercise your independent professional judgment when responding to query. Questions asked do not imply particular answer is desired or expected. We greatly appreciate your clarification on this issue. Clinical Documentation States: "Respiratory Insufficiency" -- documented in Consultation note (08/23/2017) "Saturating 80% on the arrival. Breathing treatment given through Nasal Cannula- - documented in ED Report Clinical Findings Show: Heart Rate: 119 RR:30/min Pulse Oximetry: 80 Please clarify if the patient had any of the following conditions based on the above clinical findings: [] Acute Respiratory Failure [] Acute on Chronic Respiratory Failure [] Chronic (on home O2) Respiratory Failure [] Acute Respiratory Distress [] Acute Respiratory Insufficiency [] Respiratory failure due to trauma [] Respiratory insufficiency due to trauma [] Unable to determine [] Other: Condition Present on Admission: [] Yes [] No []Clinically Undeterminable Please also document in your Progress Notes and/or Discharge Summary and indicate if the condition was present on admission. M.D. DATE & TIME MTDD
--- NOTE | 2017-08-24 15:01 | Cardiac Electrophysiology PN ---
Assessment/Plan Assessment/Plan 1. Hch-[id number] myocardial infarction by elevated troponins of 1.65,1.44, 0.99 and T-wave inversion. However, the patient never had any chest pain and her major complaint is low back pain. Continue aspirin, Plavix, Lipitor, and Lopressor 25 bid Echo EF 55%. She refuses cath. Continue medical therapy 2. Chronic obstructive pulmonary disease with moderate pulmonary HTN 3. Severe back pain with questionable disc rupture history. On analgesics. MARYANN RN Subjective Subjective No CP or SOB or arrhythmias. Has been sneezing. Objective Last 24 Hour Vital Signs Date Time Temp Pulse Resp B/P (MAP) Pulse Ox O2 Delivery O2 Flow Rate FiO2 08/24/17 14:22 97.8 08/24/17 12:00 97.8 97 16 118/42 99 Nasal Cannula 3.0 32 97.8 08/24/17 12:00 77 08/24/17 09:40 63 16 99 Nasal Cannula 3.0 32 08/24/17 09:31 Nasal Cannula 3.0 32 08/24/17 09:31 97 Nasal Cannula 3.0 32 08/24/17 09:31 62 16 97 Nasal Cannula 3.0 32 08/24/17 08:44 60 138/53 08/24/17 08:00 98.2 62 19 138/53 98 Nasal Cannula 3.0 32 98.2 08/24/17 08:00 69 08/24/17 04:00 97.3 62 19 129/80 98 Nasal Cannula 3.0 97.3 08/24/17 04:00 53 08/24/17 00:00 96.6 68 22 141/70 97 Nasal Cannula 3.0 96.6 08/24/17 00:00 58 08/23/17 22:41 64 18 99 Nasal Cannula 3.0 32 08/23/17 22:30 59 16 99 Nasal Cannula 3.0 32 08/23/17 22:30 Nasal Cannula 3.0 32 08/23/17 22:30 99 Nasal Cannula 3.0 32 08/23/17 20:12 63 146/74 08/23/17 20:00 66 08/23/17 20:00 97.3 63 20 146/74 96 Nasal Cannula 3.0 97.3 08/23/17 16:00 61 08/23/17 16:00 98.0 62 20 125/63 95 Nasal Cannula 3.0 98.0 Intake and Output 08/23/17 08/24/17 19:00 07:00 Intake Total 720 ml Balance 720 ml Intake Oral 720 ml # Voids 4 # Bowel Movements 4 1 Laboratory Tests Test 08/24/17 10:15 White Blood Count 9.4 K/UL (4.8-10.8) # Red Blood Count 4.58 M/UL (4.20-5.40) Hemoglobin 13.2 G/DL (12.0-16.0) Hematocrit 40.6 % (37.0-47.0) Mean Corpuscular Volume 89 FL (80-99) Mean Corpuscular Hemoglobin 28.8 PG (27.0-31.0) Mean Corpuscular Hemoglobin Concent 32.4 G/DL (32.0-36.0) Red Cell Distribution Width 12.8 % (11.6-14.8) Platelet Count 208 K/UL (150-450) Mean Platelet Volume 5.2 FL (6.5-10.1) L Neutrophils (%) (Auto) 54.8 % (45.0-75.0) Lymphocytes (%) (Auto) 32.6 % (20.0-45.0) Monocytes (%) (Auto) 6.6 % (1.0-10.0) Eosinophils (%) (Auto) 4.4 % (0.0-3.0) H Basophils (%) (Auto) 1.5 % (0.0-2.0) Sodium Level 141 MMOL/L (136-145) Potassium Level 3.5 MMOL/L (3.5-5.1) Chloride Level 105 MMOL/L (98-107) Carbon Dioxide Level 29 MMOL/L (21-32) Anion Gap 7 mmol/L (5-15) Blood Urea Nitrogen 24 mg/dL (7-18) H Creatinine 0.6 MG/DL (0.55-1.30) Estimat Glomerular Filtration Rate mL/min (>60) Glucose Level 109 MG/DL (74-106) H Calcium Level 8.3 MG/DL (8.5-10.1) L Objective HEAD AND NECK: No JVD LUNGS: Clear CARDIOVASCULAR: Regular S1 and S2 with no gallop or murmur. ABDOMEN: Soft. EXTREMITIES: No pitting edema. Ramesh Han MD August 24, 2017 15:01
--- NOTE | 2017-08-24 15:37 | Pulmonology Progress Note ---
Assessment/Plan Assessment/Plan IMPRESSION: 1. COPD. 2. Respiratory improved 3. CHF 4. Elevated troponin. 5. Possible non-STEMI. 6. Lower extremity spasm. PLAN respiratory care outpatient PFT oxygen recommend to dc beta angelina if able optimize fluid status impression, plan, and exam edited and reviewed in detail care discussed with RN Subjective Allergies: Coded Allergies: AMPICILLIN (Verified Allergy, Intermediate, 08/26/12) Subjective comfortable no distress Objective Last 24 Hour Vital Signs Date Time Temp Pulse Resp B/P (MAP) Pulse Ox O2 Delivery O2 Flow Rate FiO2 08/24/17 14:22 97.8 08/24/17 12:00 97.8 97 16 118/42 99 Nasal Cannula 3.0 32 97.8 08/24/17 12:00 77 08/24/17 09:40 63 16 99 Nasal Cannula 3.0 32 08/24/17 09:31 Nasal Cannula 3.0 32 08/24/17 09:31 97 Nasal Cannula 3.0 32 08/24/17 09:31 62 16 97 Nasal Cannula 3.0 32 08/24/17 08:44 60 138/53 08/24/17 08:00 98.2 62 19 138/53 98 Nasal Cannula 3.0 32 98.2 08/24/17 08:00 69 08/24/17 04:00 97.3 62 19 129/80 98 Nasal Cannula 3.0 97.3 08/24/17 04:00 53 08/24/17 00:00 96.6 68 22 141/70 97 Nasal Cannula 3.0 96.6 08/24/17 00:00 58 08/23/17 22:41 64 18 99 Nasal Cannula 3.0 32 08/23/17 22:30 59 16 99 Nasal Cannula 3.0 32 08/23/17 22:30 Nasal Cannula 3.0 32 08/23/17 22:30 99 Nasal Cannula 3.0 32 08/23/17 20:12 63 146/74 08/23/17 20:00 66 08/23/17 20:00 97.3 63 20 146/74 96 Nasal Cannula 3.0 97.3 08/23/17 16:00 61 08/23/17 16:00 98.0 62 20 125/63 95 Nasal Cannula 3.0 98.0 Intake and Output 08/23/17 08/24/17 19:00 07:00 Intake Total 720 ml Balance 720 ml Intake Oral 720 ml # Voids 4 # Bowel Movements 4 1 Objective HEENT: Overall negative. The patient's extraocular movements are grossly intact. NECK: No jugular venous distention. LUNGS: Moderate breath sounds. no rhonchi or wheezes. CARDIAC: Normal S1 and S2. Regular rhythm without murmurs, rubs, or gallops. ABDOMEN: Soft, nontender, nondistended. EXTREMITIES: No cyanosis, clubbing, or edema. NEUROLOGIC: Grossly nonfocal. SKIN: Without any rashes. alert and comfortable Laboratory Tests 08/24/17 10:15: White Blood Count 9.4#, Red Blood Count 4.58, Hemoglobin 13.2, Hematocrit 40.6, Mean Corpuscular Volume 89, Mean Corpuscular Hemoglobin 28.8, Mean Corpuscular Hemoglobin Concent 32.4, Red Cell Distribution Width 12.8, Platelet Count 208, Mean Platelet Volume 5.2L, Neutrophils (%) (Auto) 54.8, Lymphocytes (%) (Auto) 32.6, Monocytes (%) (Auto) 6.6, Eosinophils (%) (Auto) 4.4H, Basophils (%) (Auto ) 1.5, Sodium Level 141, Potassium Level 3.5, Chloride Level 105, Carbon Dioxide Level 29, Anion Gap 7, Blood Urea Nitrogen 24H, Creatinine 0.6, Estimat Glomerular Filtration Rate , Glucose Level 109H, Calcium Level 8.3L Current Medications Medications (Trade) Dose Ordered Sig/[place] Route PRN Reason Start Time Stop Time Status Last Admin Dose Admin Acetaminophen (Tylenol) 650 mg Q4H PRN ORAL Mild Pain (Pain Scale 1-3) 08/22/17 16:00 09/21/17 15:59 Acetaminophen/ Hydrocodone Bitart ([place] 5/325) 1 tab Q6H PRN ORAL Moderate Pain (Pain Scale 4-6) 08/22/17 21:00 08/29/17 20:59 08/24/17 14:22 Albuterol Sulfate (Proventil) 2.5 mg Q12H PRN HHN Shortness of Breath 08/22/17 16:00 08/27/17 15:59 Albuterol/ Ipratropium (Albuterol/ Ipratropium) 3 ml BIDRT HHN 08/22/17 22:00 08/27/17 21:59 08/24/17 09:31 Aspirin (ASA) 81 mg DAILY ORAL 08/23/17 09:00 09/22/17 08:59 08/24/17 08:43 Atorvastatin Calcium (Lipitor) 40 mg BEDTIME ORAL 08/22/17 21:00 09/21/17 20:59 08/23/17 20:11 Clopidogrel Bisulfate (Plavix) 75 mg DAILY ORAL 08/23/17 09:00 09/22/17 08:59 08/24/17 08:44 Dextrose (Dextrose 50%) 25 ml STAT PRN IV Hypoglycemia 08/22/17 16:00 09/21/17 15:59 Dextrose (Dextrose 50%) 50 ml STAT PRN IV Hypoglycemia 08/22/17 16:00 09/21/17 15:59 Docusate Sodium (Colace) 100 mg EVERY 12 HOURS ORAL 08/22/17 21:00 09/21/17 20:59 08/24/17 08:43 Gabapentin (Neurontin) 300 mg THREE TIMES A DAY ORAL 08/22/17 18:00 09/21/17 17:59 08/24/17 13:21 Heparin Sodium (Porcine) (Heparin 5000 units/ml) 5,000 units EVERY 8 HOURS SUBQ 08/22/17 22:00 09/21/17 21:59 08/24/17 13:24 Lorazepam (Ativan) 2 mg Q6HR PRN ORAL For Anxiety 08/23/17 10:15 08/30/17 10:14 08/24/17 08:44 Metoprolol Tartrate (Lopressor) 25 mg Q12HR ORAL 08/22/17 21:00 09/21/17 20:59 08/23/17 20:12 Ondansetron HCl (Zofran) 4 mg Q6H PRN IVP Nausea & Vomiting 08/22/17 16:00 09/21/17 15:59 Trazodone HCl (Desyrel) 100 mg BEDTIME ORAL 08/22/17 21:00 09/21/17 20:59 08/23/17 20:11 José Brown MD August 24, 2017 15:37
[2017-08-24 16:00] VITALS: BP 132/84
[2017-08-24 20:00] VITALS: BP 134/67
[2017-08-24] MEDS: Atorvastatin 20mg tab ORAL SCH (20:31)
[2017-08-24] MEDS: TraZODone 100mg tab ORAL SCH (20:32)
[2017-08-25] VITALS: BP 155/73
[2017-08-25] MEDS: LORazepam 1mg tab ORAL PRN ×3 (00:17→14:42)
[2017-08-25 04:00] VITALS: BP 114/52
[2017-08-25] MEDS: Norco 5mg/325mg tab ORAL PRN ×4 (04:03→22:58)
[2017-08-25] MEDS: Heparin 5000 units/ml inj SUBQ SCH ×3 (06:00→21:52)
--- NOTE | 2017-08-25 06:41 | Pulmonology Progress Note ---
Assessment/Plan Assessment/Plan IMPRESSION: 1. COPD. 2. Respiratory improved 3. CHF 4. Elevated troponin. 5. Possible non-STEMI. 6. Lower extremity spasm. PLAN respiratory care outpatient PFT and follow up recommended oxygen for comfort recommend to dc beta angelina if able to avoid bronchospasm optimize fluid status recommend spiriva on discharge but need to assess lung function for further recommendations impression, plan, and exam edited and reviewed in detail care discussed with RN Subjective Allergies: Coded Allergies: AMPICILLIN (Verified Allergy, Intermediate, 08/26/12) Subjective comfortable no distress overnight rn notes reviewed Objective Last 24 Hour Vital Signs Date Time Temp Pulse Resp B/P (MAP) Pulse Ox O2 Delivery O2 Flow Rate FiO2 08/25/17 04:00 66 08/25/17 04:00 97.8 63 20 114/52 94 Nasal Cannula 3.0 32 97.8 08/25/17 00:00 97.9 70 20 155/73 95 Nasal Cannula 3.0 32 97.9 08/25/17 00:00 63 08/24/17 23:16 62 16 99 Nasal Cannula 3.0 32 08/24/17 23:05 66 16 97 Nasal Cannula 3.0 32 08/24/17 20:32 70 134/67 08/24/17 20:00 79 08/24/17 20:00 99.2 70 20 134/67 97 Nasal Cannula 3.0 32 99.2 08/24/17 19:02 96 Nasal Cannula 3.0 32 08/24/17 19:02 Nasal Cannula 3.0 32 08/24/17 16:00 71 08/24/17 16:00 98.3 74 16 132/84 99 Nasal Cannula 3.0 32 98.3 08/24/17 15:21 97.8 08/24/17 14:22 97.8 08/24/17 12:00 97.8 97 16 118/42 99 Nasal Cannula 3.0 32 97.8 08/24/17 12:00 77 08/24/17 09:40 63 16 99 Nasal Cannula 3.0 32 08/24/17 09:31 Nasal Cannula 3.0 32 08/24/17 09:31 97 Nasal Cannula 3.0 32 08/24/17 09:31 62 16 97 Nasal Cannula 3.0 32 08/24/17 08:44 60 138/53 08/24/17 08:00 98.2 62 19 138/53 98 Nasal Cannula 3.0 32 98.2 08/24/17 08:00 69 Intake and Output 08/24/17 08/25/17 19:00 07:00 Intake Total 500 ml Output Total 6 ml Balance 494 ml Intake Oral 500 ml Output Urine Total 5 ml Stool Total 1 ml # Bowel Movements 1 Objective HEENT: Overall negative. The patient's extraocular movements are grossly intact. NECK: No jugular venous distention. LUNGS: Moderate breath sounds. no rhonchi or wheezes. CARDIAC: Normal S1 and S2. Regular rhythm without murmurs, rubs, or gallops. ABDOMEN: Soft, nontender, nondistended. EXTREMITIES: No cyanosis, clubbing, or edema. NEUROLOGIC: Grossly nonfocal. SKIN: Without any rashes. alert and comfortable Laboratory Tests 08/24/17 10:15: White Blood Count 9.4#, Red Blood Count 4.58, Hemoglobin 13.2, Hematocrit 40.6, Mean Corpuscular Volume 89, Mean Corpuscular Hemoglobin 28.8, Mean Corpuscular Hemoglobin Concent 32.4, Red Cell Distribution Width 12.8, Platelet Count 208, Mean Platelet Volume 5.2L, Neutrophils (%) (Auto) 54.8, Lymphocytes (%) (Auto) 32.6, Monocytes (%) (Auto) 6.6, Eosinophils (%) (Auto) 4.4H, Basophils (%) (Auto ) 1.5, Sodium Level 141, Potassium Level 3.5, Chloride Level 105, Carbon Dioxide Level 29, Anion Gap 7, Blood Urea Nitrogen 24H, Creatinine 0.6, Estimat Glomerular Filtration Rate , Glucose Level 109H, Calcium Level 8.3L Current Medications Medications (Trade) Dose Ordered Sig/[place] Route PRN Reason Start Time Stop Time Status Last Admin Dose Admin Acetaminophen (Tylenol) 650 mg Q4H PRN ORAL Mild Pain (Pain Scale 1-3) 08/22/17 16:00 09/21/17 15:59 Acetaminophen/ Hydrocodone Bitart ([place] 5/325) 1 tab Q6H PRN ORAL Moderate Pain (Pain Scale 4-6) 08/22/17 21:00 08/29/17 20:59 08/25/17 04:03 Albuterol Sulfate (Proventil) 2.5 mg Q12H PRN HHN Shortness of Breath 08/22/17 16:00 08/27/17 15:59 Albuterol/ Ipratropium (Albuterol/ Ipratropium) 3 ml BIDRT HHN 08/22/17 22:00 08/27/17 21:59 08/24/17 23:05 Aspirin (ASA) 81 mg DAILY ORAL 08/23/17 09:00 09/22/17 08:59 08/24/17 08:43 Atorvastatin Calcium (Lipitor) 40 mg BEDTIME ORAL 08/22/17 21:00 09/21/17 20:59 08/24/17 20:31 Clopidogrel Bisulfate (Plavix) 75 mg DAILY ORAL 08/23/17 09:00 09/22/17 08:59 08/24/17 08:44 Dextrose (Dextrose 50%) 25 ml STAT PRN IV Hypoglycemia 08/22/17 16:00 09/21/17 15:59 Dextrose (Dextrose 50%) 50 ml STAT PRN IV Hypoglycemia 08/22/17 16:00 09/21/17 15:59 Docusate Sodium (Colace) 100 mg EVERY 12 HOURS ORAL 08/22/17 21:00 09/21/17 20:59 08/24/17 20:31 Gabapentin (Neurontin) 300 mg THREE TIMES A DAY ORAL 08/22/17 18:00 09/21/17 17:59 08/24/17 17:25 Heparin Sodium (Porcine) (Heparin 5000 units/ml) 5,000 units EVERY 8 HOURS SUBQ 08/22/17 22:00 09/21/17 21:59 08/24/17 13:24 Lorazepam (Ativan) 2 mg Q6HR PRN ORAL For Anxiety 08/23/17 10:15 08/30/17 10:14 08/25/17 00:17 Metoprolol Tartrate (Lopressor) 25 mg Q12HR ORAL 08/22/17 21:00 09/21/17 20:59 08/24/17 20:32 Ondansetron HCl (Zofran) 4 mg Q6H PRN IVP Nausea & Vomiting 08/22/17 16:00 09/21/17 15:59 Trazodone HCl (Desyrel) 100 mg BEDTIME ORAL 08/22/17 21:00 09/21/17 20:59 08/24/17 20:32 José Brown MD August 25, 2017 06:41
[2017-08-25 08:00] VITALS: BP 151/111
[2017-08-25 08:01] LABS: EOSINOPHILS % (AUTO) 4.9 % (0.0-3.0); HEMATOCRIT 41.6 % (37.0-47.0); HEMOGLOBIN 13.1 G/DL (12.0-16.0); LYMPHOCYTES % (AUTO) 28.8 % (20.0-45.0); MEAN CORPUSCULAR VOLUME 90 FL (80-99); MONOCYTES % (AUTO) 7.9 % (1.0-10.0); NEUTROPHILS % (AUTO) 56.4 % (45.0-75.0); PLATELET COUNT 194 K/UL (150-450); RED BLOOD COUNT 4.64 M/UL (4.20-5.40); RED CELL DISTRIBUTION WIDTH 13.2 % (11.6-14.8); WHITE BLOOD COUNT 8.9 K/UL (4.8-10.8)
[2017-08-25] MEDS: Aspirin Baby 81mg ORAL SCH (08:05)
[2017-08-25] MEDS: Metoprolol 25mg tab ORAL SCH ×2 (08:06→21:53)
[2017-08-25] MEDS: Docusate 100mg cap ORAL SCH ×2 (08:06→21:52)
[2017-08-25 08:57] LABS: ANION GAP 11 mmol/L (5-15); BLOOD UREA NITROGEN 19 mg/dL (7-18); CALCIUM 8.2 MG/DL (8.5-10.1); CARBON DIOXIDE 25 MMOL/L (21-32); CHLORIDE 105 MMOL/L (98-107); CREATININE 0.4 MG/DL (0.55-1.30); POTASSIUM 4.3 MMOL/L (3.5-5.1); SODIUM 140 MMOL/L (136-145)
--- NOTE | 2017-08-25 09:07 | Nephrology Progress Note ---
Assessment/Plan Assessment/Plan 1. Restless Leg - defer management to PSY with anxiolytics and narcotics 2. ACS- elevated Trop I. Patient declined cardiac cath. Plan for DC today if cleared by cardiology - ASA/BB/statin and Plavix - LE US results/report within normal limits 3. HTN- stable 4. DVT Prophylaxis- heparin sub q 5. COPD- mgmt per PULM - oupt spiriva and PFTs and f/u with Pulm Subjective Date patient seen: August 25, 2017 Time patient seen: 08:56 ROS Limited/Unobtainable: Yes Allergies: Coded Allergies: AMPICILLIN (Verified Allergy, Intermediate, 08/26/12) Subjective Patient sleeping comfortably Objective Last 24 Hour Vital Signs Date Time Temp Pulse Resp B/P (MAP) Pulse Ox O2 Delivery O2 Flow Rate FiO2 08/25/17 08:06 71 151/111 08/25/17 04:00 66 08/25/17 04:00 97.8 63 20 114/52 94 Nasal Cannula 3.0 32 97.8 08/25/17 00:00 97.9 70 20 155/73 95 Nasal Cannula 3.0 32 97.9 08/25/17 00:00 63 08/24/17 23:16 62 16 99 Nasal Cannula 3.0 32 08/24/17 23:05 66 16 97 Nasal Cannula 3.0 32 08/24/17 20:32 70 134/67 08/24/17 20:00 79 08/24/17 20:00 99.2 70 20 134/67 97 Nasal Cannula 3.0 32 99.2 08/24/17 19:02 96 Nasal Cannula 3.0 32 08/24/17 19:02 Nasal Cannula 3.0 32 08/24/17 16:00 71 08/24/17 16:00 98.3 74 16 132/84 99 Nasal Cannula 3.0 32 98.3 08/24/17 15:21 97.8 08/24/17 14:22 97.8 08/24/17 12:00 97.8 97 16 118/42 99 Nasal Cannula 3.0 32 97.8 08/24/17 12:00 77 08/24/17 09:40 63 16 99 Nasal Cannula 3.0 32 08/24/17 09:31 Nasal Cannula 3.0 32 08/24/17 09:31 97 Nasal Cannula 3.0 32 08/24/17 09:31 62 16 97 Nasal Cannula 3.0 32 Intake and Output 08/24/17 08/25/17 19:00 07:00 Intake Total 500 ml Output Total 6 ml Balance 494 ml Intake Oral 500 ml Output Urine Total 5 ml Stool Total 1 ml # Voids 3 # Bowel Movements 1 Laboratory Tests 08/24/17 10:15: White Blood Count 9.4#, Red Blood Count 4.58, Hemoglobin 13.2, Hematocrit 40.6, Mean Corpuscular Volume 89, Mean Corpuscular Hemoglobin 28.8, Mean Corpuscular Hemoglobin Concent 32.4, Red Cell Distribution Width 12.8, Platelet Count 208, Mean Platelet Volume 5.2L, Neutrophils (%) (Auto) 54.8, Lymphocytes (%) (Auto) 32.6, Monocytes (%) (Auto) 6.6, Eosinophils (%) (Auto) 4.4H, Basophils (%) (Auto ) 1.5, Sodium Level 141, Potassium Level 3.5, Chloride Level 105, Carbon Dioxide Level 29, Anion Gap 7, Blood Urea Nitrogen 24H, Creatinine 0.6, Estimat Glomerular Filtration Rate , Glucose Level 109H, Calcium Level 8.3L 08/25/17 07:20: White Blood Count 8.9, Red Blood Count 4.64, Hemoglobin 13.1, Hematocrit 41.6, Mean Corpuscular Volume 90, Mean Corpuscular Hemoglobin 28.1, Mean Corpuscular Hemoglobin Concent 31.4L, Red Cell Distribution Width 13.2, Platelet Count 194, Mean Platelet Volume 5.8L, Neutrophils (%) (Auto) 56.4, Lymphocytes (%) (Auto) 28.8, Monocytes (%) (Auto) 7.9, Eosinophils (%) (Auto) 4.9H, Basophils (%) (Auto ) 2.0, Sodium Level [Pending], Potassium Level [Pending], Chloride Level [ Pending], Carbon Dioxide Level [Pending], Blood Urea Nitrogen [Pending], Creatinine [Pending], Estimat Glomerular Filtration Rate [Pending], Glucose Level [Pending], Calcium Level [Pending] Height (Feet): 5 Height (Inches): 1.00 Weight (Pounds): 152 General Appearance: WD/WN EENT: normal ENT inspection Neck: normal alignment, normal inspection Cardiovascular: normal rate, regular rhythm Respiratory/Chest: lungs clear, normal breath sounds Abdomen: normal bowel sounds, non tender, soft Edema: no edema noted Arm (L), no edema noted Arm (R), no edema noted Leg (L), no edema noted Leg (R), no edema noted Pedal (L), no edema noted Pedal (R), no edema noted Generalized Dev Silverman M.D. August 25, 2017 09:07
[2017-08-25] MEDS: Albuterol/Ipratropium 3ml neb HHN SCH ×2 (09:55→20:47)
[2017-08-25 12:00] VITALS: BP 106/63
[2017-08-25 16:00] VITALS: BP 153/68
[2017-08-25 20:29] VITALS: BP 121/74
[2017-08-25] MEDS: Atorvastatin 20mg tab ORAL SCH (21:51)
[2017-08-25] MEDS: TraZODone 100mg tab ORAL SCH (21:52)
[2017-08-26 00:50] VITALS: BP 132/64
[2017-08-26] MEDS: LORazepam 1mg tab ORAL PRN ×2 (01:48→12:02)
[2017-08-26 04:00] VITALS: BP 164/70
[2017-08-26] MEDS: Norco 5mg/325mg tab ORAL PRN ×4 (04:33→21:37)
[2017-08-26] MEDS: Heparin 5000 units/ml inj SUBQ SCH (05:55)
[2017-08-26 08:00] VITALS: BP 116/62
--- NOTE | 2017-08-26 08:04 | Pulmonology Progress Note ---
Assessment/Plan Assessment/Plan IMPRESSION: 1. COPD. 2. Respiratory improved 3. CHF 4. Elevated troponin. 5. Possible non-STEMI. possible CAD 6. Lower extremity spasm. PLAN respiratory care as is outpatient PFT and follow up recommended oxygen for comfort refuses transfer to [facility] for cath optimize fluid status recommend spiriva on discharge but need to assess lung function for further recommendations ok to dc per pulm impression, plan, and exam edited and reviewed in detail care discussed with RN Subjective Allergies: Coded Allergies: AMPICILLIN (Verified Allergy, Intermediate, 08/26/12) Subjective comfortable no distress overnight rn notes reviewed patient wants to discuss dc Objective Last 24 Hour Vital Signs Date Time Temp Pulse Resp B/P (MAP) Pulse Ox O2 Delivery O2 Flow Rate FiO2 08/26/17 04:00 97.0 72 20 164/70 97 Nasal Cannula 97.0 08/26/17 04:00 58 08/26/17 00:50 98.9 101 20 132/64 97 Nasal Cannula 98.9 08/26/17 00:49 58 08/25/17 21:53 75 132/64 08/25/17 20:47 Nasal Cannula 3.0 32 08/25/17 20:47 Nasal Cannula 3.0 32 08/25/17 20:29 98.9 101 20 121/74 Room Air 98.9 08/25/17 19:02 Nasal Cannula 3.0 32 08/25/17 19:02 97 Nasal Cannula 3.0 32 08/25/17 17:41 97.1 08/25/17 16:42 97.1 08/25/17 16:00 98.1 77 16 153/68 98 Nasal Cannula 3.0 32 98.1 08/25/17 16:00 73 08/25/17 12:00 97.1 62 16 106/63 98 Nasal Cannula 3.0 32 97.1 08/25/17 12:00 68 08/25/17 10:06 97.4 08/25/17 10:03 58 16 98 Nasal Cannula 3.0 32 08/25/17 09:55 Nasal Cannula 3.0 32 08/25/17 09:55 61 16 99 Nasal Cannula 3.0 32 08/25/17 09:55 99 Nasal Cannula 3.0 32 08/25/17 08:06 71 151/111 Intake and Output 08/25/17 08/26/17 19:00 07:00 Intake Total 720 ml Output Total 350 ml Balance 370 ml Intake Oral 720 ml Output Urine Total 350 ml # Voids 4 Objective HEENT: Overall negative. The patient's extraocular movements are grossly intact. NECK: No jugular venous distention. LUNGS: Moderate breath sounds. no rhonchi or wheezes. CARDIAC: Normal S1 and S2. Regular rhythm without murmurs, rubs, or gallops. ABDOMEN: Soft, nontender, nondistended. EXTREMITIES: No cyanosis, clubbing, or edema. NEUROLOGIC: Grossly nonfocal. SKIN: Without any rashes. alert and comfortable Current Medications Medications (Trade) Dose Ordered Sig/[place] Route PRN Reason Start Time Stop Time Status Last Admin Dose Admin Acetaminophen (Tylenol) 650 mg Q4H PRN ORAL Mild Pain (Pain Scale 1-3) 08/22/17 16:00 09/21/17 15:59 Acetaminophen/ Hydrocodone Bitart ([place] 5/325) 1 tab Q6H PRN ORAL Moderate Pain (Pain Scale 4-6) 08/22/17 21:00 08/29/17 20:59 08/26/17 04:33 Albuterol Sulfate (Proventil) 2.5 mg Q12H PRN HHN Shortness of Breath 08/22/17 16:00 08/27/17 15:59 Albuterol/ Ipratropium (Albuterol/ Ipratropium) 3 ml BIDRT HHN 08/22/17 22:00 08/27/17 21:59 08/25/17 09:55 Aspirin (ASA) 81 mg DAILY ORAL 08/23/17 09:00 09/22/17 08:59 08/25/17 08:05 Atorvastatin Calcium (Lipitor) 40 mg BEDTIME ORAL 08/22/17 21:00 09/21/17 20:59 08/25/17 21:51 Clopidogrel Bisulfate (Plavix) 75 mg DAILY ORAL 08/23/17 09:00 09/22/17 08:59 08/25/17 08:05 Dextrose (Dextrose 50%) 25 ml STAT PRN IV Hypoglycemia 08/22/17 16:00 09/21/17 15:59 Dextrose (Dextrose 50%) 50 ml STAT PRN IV Hypoglycemia 08/22/17 16:00 09/21/17 15:59 Docusate Sodium (Colace) 100 mg EVERY 12 HOURS ORAL 5/24/18 21:00 09/21/17 20:59 08/25/17 21:52 Gabapentin (Neurontin) 300 mg THREE TIMES A DAY ORAL 08/22/17 18:00 09/21/17 17:59 08/25/17 17:30 Heparin Sodium (Porcine) (Heparin 5000 units/ml) 5,000 units EVERY 8 HOURS SUBQ 08/22/17 22:00 09/21/17 21:59 08/26/17 05:55 Lorazepam (Ativan) 2 mg Q6HR PRN ORAL For Anxiety 08/23/17 10:15 08/30/17 10:14 08/26/17 01:48 Metoprolol Tartrate (Lopressor) 25 mg Q12HR ORAL 08/22/17 21:00 09/21/17 20:59 08/25/17 21:53 Ondansetron HCl (Zofran) 4 mg Q6H PRN IVP Nausea & Vomiting 08/22/17 16:00 09/21/17 15:59 Trazodone HCl (Desyrel) 100 mg BEDTIME ORAL 08/22/17 21:00 09/21/17 20:59 08/25/17 21:52 José Brown MD August 26, 2017 08:04
--- NOTE | 2017-08-26 08:36 | Nephrology Progress Note ---
Assessment/Plan Assessment/Plan 1. Restless Leg - defer management to PSY with anxiolytics and narcotics Rx/treatment 2. ACS- elevated Trop I. Patient has changed her mind and is willing to undergo a heart cath. Await transfer per retirement plan specialist - ASA/BB/statin and Plavix - LE US results/report within normal limits 3. HTN- stable 4. DVT Prophylaxis- heparin sub q 5. COPD- mgmt per PULM - oupt spiriva and PFTs and f/u with Pulm post DC Subjective Date patient seen: August 26, 2017 Time patient seen: 08:32 ROS Limited/Unobtainable: No Allergies: Coded Allergies: AMPICILLIN (Verified Allergy, Intermediate, 08/26/12) All Systems: reviewed and negative except above Subjective Patient in no distress. Back to baseline Objective Last 24 Hour Vital Signs Date Time Temp Pulse Resp B/P (MAP) Pulse Ox O2 Delivery O2 Flow Rate FiO2 08/26/17 04:00 97.0 72 20 164/70 97 Nasal Cannula 97.0 08/26/17 04:00 58 08/26/17 00:50 98.9 101 20 132/64 97 Nasal Cannula 98.9 08/26/17 00:49 58 08/25/17 21:53 75 132/64 08/25/17 20:47 Nasal Cannula 3.0 32 08/25/17 20:47 Nasal Cannula 3.0 32 08/25/17 20:29 98.9 101 20 121/74 Room Air 98.9 08/25/17 19:02 Nasal Cannula 3.0 32 08/25/17 19:02 97 Nasal Cannula 3.0 32 08/25/17 17:41 97.1 08/25/17 16:42 97.1 08/25/17 16:00 98.1 77 16 153/68 98 Nasal Cannula 3.0 32 98.1 08/25/17 16:00 73 08/25/17 12:00 97.1 62 16 106/63 98 Nasal Cannula 3.0 32 97.1 08/25/17 12:00 68 08/25/17 10:06 97.4 08/25/17 10:03 58 16 98 Nasal Cannula 3.0 32 08/25/17 09:55 Nasal Cannula 3.0 32 08/25/17 09:55 61 16 99 Nasal Cannula 3.0 32 08/25/17 09:55 99 Nasal Cannula 3.0 32 Intake and Output 08/25/17 08/26/17 19:00 07:00 Intake Total 720 ml Output Total 350 ml Balance 370 ml Intake Oral 720 ml Output Urine Total 350 ml # Voids 4 Height (Feet): 5 Height (Inches): 1.00 Weight (Pounds): 152 General Appearance: no apparent distress, alert EENT: PERRL/EOMI, normal ENT inspection Neck: normal alignment, supple Cardiovascular: normal rate, regular rhythm Respiratory/Chest: lungs clear, normal breath sounds Abdomen: normal bowel sounds, non tender, soft Edema: no edema noted Arm (L), no edema noted Arm (R), no edema noted Leg (L), no edema noted Leg (R), no edema noted Pedal (L), no edema noted Pedal (R), no edema noted Generalized Dev Silverman M.D. August 26, 2017 08:36
[2017-08-26] MEDS: Docusate 100mg cap ORAL SCH ×2 (09:00→21:35)
[2017-08-26] MEDS: Aspirin Baby 81mg ORAL SCH (09:10)
[2017-08-26] MEDS: Metoprolol 25mg tab ORAL SCH ×2 (09:12→21:35)
[2017-08-26] MEDS: Albuterol/Ipratropium 3ml neb HHN SCH ×2 (09:53→19:44)
[2017-08-26 12:00] VITALS: BP 123/68
--- NOTE | 2017-08-26 12:16 | Cardiac Electrophysiology PN ---
Assessment/Plan Assessment/Plan 1. [id number] myocardial infarction by elevated troponins of 1.65,1.44, 0.99 and T-wave inversion. However, the patient never had any chest pain and her major complaint is low back pain. Continue aspirin, Plavix, Lipitor, and Lopressor 25 bid Echo EF 55%. Now wants cardiac cath. Continue medical therapy. Will transfer to [facility] 2. Chronic obstructive pulmonary disease with moderate pulmonary HTN 3. Severe back pain with questionable disc rupture history. On analgesics. MARYANN RN Subjective Subjective No CP or SOB or arrhythmias. Now agreeable for cardiac cath. Objective Last 24 Hour Vital Signs Date Time Temp Pulse Resp B/P (MAP) Pulse Ox O2 Delivery O2 Flow Rate FiO2 08/26/17 10:05 59 16 98 Nasal Cannula 3.0 32 08/26/17 09:54 64 16 93 Room Air 08/26/17 09:12 116 116/62 08/26/17 08:55 Room Air 08/26/17 08:54 92 Room Air 08/26/17 08:00 73 08/26/17 08:00 97.2 116 20 116/62 92 Nasal Cannula 97.2 08/26/17 04:00 97.0 72 20 164/70 97 Nasal Cannula 97.0 08/26/17 04:00 58 08/26/17 00:50 98.9 101 20 132/64 97 Nasal Cannula 98.9 08/26/17 00:49 58 08/25/17 21:53 75 132/64 08/25/17 20:47 Nasal Cannula 3.0 32 08/25/17 20:47 Nasal Cannula 3.0 32 08/25/17 20:29 98.9 101 20 121/74 Room Air 98.9 08/25/17 19:02 Nasal Cannula 3.0 32 08/25/17 19:02 97 Nasal Cannula 3.0 32 08/25/17 17:41 97.1 08/25/17 16:42 97.1 08/25/17 16:00 98.1 77 16 153/68 98 Nasal Cannula 3.0 32 98.1 08/25/17 16:00 73 Intake and Output 08/25/17 08/26/17 19:00 07:00 Intake Total 720 ml Output Total 350 ml Balance 370 ml Intake Oral 720 ml Output Urine Total 350 ml # Voids 4 Objective HEAD AND NECK: No JVD LUNGS: Clear CARDIOVASCULAR: Regular S1 and S2 with no gallop or murmur. ABDOMEN: Soft. EXTREMITIES: No pitting edema. Ramesh Han MD August 26, 2017 12:16
[2017-08-26 16:00] VITALS: BP 140/64
[2017-08-26] MEDS ORDERED: Heparin 5000 units/ml inj SUBQ SCH (18:00)
[2017-08-26 20:00] VITALS: BP 145/68
[2017-08-26] MEDS: TraZODone 100mg tab ORAL SCH (21:35)
[2017-08-26] MEDS: Atorvastatin 20mg tab ORAL SCH (21:35)
[2017-08-27] VITALS: BP 101/50
[2017-08-27] MEDS: LORazepam 1mg tab ORAL PRN (01:08)
[2017-08-27 04:00] VITALS: BP 103/60
[2017-08-27] MEDS: Norco 5mg/325mg tab ORAL PRN ×3 (07:13→21:14)
[2017-08-27 08:00] VITALS: BP 88/35
--- NOTE | 2017-08-27 08:00 | Nephrology Progress Note ---
Assessment/Plan Assessment/Plan 1. Restless Leg- management to PSY with anxiolytics and narcotics Rx/treatment 2. ACS- elevated Trop I. Patient now willing to undergo a heart cath. Await transfer per cemetery workers supervisor to [place] - ASA/BB/statin and Plavix - LE US results/report within normal limits 3. HTN- stable 4. DVT Prophylaxis- change to SCDs, patient declining further sub q heparin 5. COPD- mgmt per PULM Subjective Date patient seen: August 27, 2017 Time patient seen: 07:56 ROS Limited/Unobtainable: No Allergies: Coded Allergies: AMPICILLIN (Verified Allergy, Intermediate, 08/26/12) All Systems: reviewed and negative except above Subjective Patient c/o abdominal bruising from heraprin injections Objective Last 24 Hour Vital Signs Date Time Temp Pulse Resp B/P (MAP) Pulse Ox O2 Delivery O2 Flow Rate FiO2 08/27/17 07:13 98.1 08/27/17 00:00 98.1 78 19 101/50 93 Nasal Cannula 98.1 08/27/17 00:00 68 08/26/17 22:36 97.7 08/26/17 21:37 97.7 08/26/17 21:35 67 140/64 08/26/17 20:58 67 16 99 Nasal Cannula 3.0 32 08/26/17 20:47 71 18 Nasal Cannula 2.0 28 08/26/17 20:46 66 16 95 Nasal Cannula 2.0 28 08/26/17 20:00 97.9 78 19 145/68 93 Nasal Cannula 97.9 08/26/17 19:44 98 Nasal Cannula 3.0 32 08/26/17 19:44 Nasal Cannula 3.0 32 08/26/17 16:00 67 08/26/17 16:00 97.7 66 20 140/64 92 Nasal Cannula 97.7 08/26/17 12:00 58 08/26/17 12:00 97.3 66 20 123/68 90 Nasal Cannula 97.3 08/26/17 10:05 59 16 98 Nasal Cannula 3.0 32 08/26/17 09:54 64 16 93 Room Air 08/26/17 09:12 116 116/62 08/26/17 08:55 Room Air 08/26/17 08:54 92 Room Air 08/26/17 08:00 97.2 116 20 116/62 92 Nasal Cannula 97.2 08/26/17 08:00 73 Intake and Output 08/26/17 08/27/17 19:00 07:00 Intake Total 450 ml Balance 450 ml Intake Oral 450 ml # Voids 4 6 Height (Feet): 5 Height (Inches): 1.00 Weight (Pounds): 152 General Appearance: WD/WN, no apparent distress EENT: normal ENT inspection, TMs normal Neck: normal alignment, supple Cardiovascular: normal rate, regular rhythm Respiratory/Chest: lungs clear, normal breath sounds Abdomen: non tender, soft, other - abdominal bruising Edema: no edema noted Arm (L), no edema noted Arm (R), no edema noted Leg (L), no edema noted Leg (R), no edema noted Pedal (L), no edema noted Pedal (R), no edema noted Generalized Dev Silverman M.D. August 27, 2017 07:59
[2017-08-27] MEDS: Aspirin Baby 81mg ORAL SCH (08:51)
[2017-08-27] MEDS: Docusate 100mg cap ORAL SCH ×2 (08:51→21:10)
[2017-08-27] MEDS: Metoprolol 25mg tab ORAL SCH ×2 (08:54→21:11)
[2017-08-27] MEDS: Albuterol/Ipratropium 3ml neb HHN SCH (09:22)
--- NOTE | 2017-08-27 09:43 | Cardiac Electrophysiology PN ---
Assessment/Plan Assessment/Plan 1. [id number] myocardial infarction by elevated troponins of 1.65,1.44, 0.99 and T-wave inversion. Denies chest pain and her major complaint is low back pain. Continue aspirin, Plavix, Lipitor, and Lopressor 25 bid Echo EF 55%. Continue medical therapy. Awaiting transfer to [facility] 2. Chronic obstructive pulmonary disease with moderate pulmonary HTN 3. Severe back pain with questionable disc rupture history. On analgesics. MARYANN RN Subjective Subjective No CP or SOB or arrhythmias. Awaiting transfer for cardiac cath Objective Last 24 Hour Vital Signs Date Time Temp Pulse Resp B/P (MAP) Pulse Ox O2 Delivery O2 Flow Rate FiO2 08/27/17 09:28 75 16 98 Nasal Cannula 2.0 08/27/17 09:22 75 18 92 Nasal Cannula 2.0 08/27/17 09:22 Nasal Cannula 2.0 08/27/17 09:22 92 Nasal Cannula 2.0 08/27/17 09:22 75 18 Nasal Cannula 2.0 08/27/17 08:54 77 88/35 08/27/17 08:12 98.1 08/27/17 08:00 97.8 78 18 88/35 94 Nasal Cannula 97.8 08/27/17 07:13 98.1 08/27/17 04:00 97.8 78 19 103/60 93 Nasal Cannula 97.8 08/27/17 04:00 71 08/27/17 00:00 98.1 78 19 101/50 93 Nasal Cannula 98.1 08/27/17 00:00 68 08/26/17 21:37 97.7 08/26/17 21:35 67 140/64 08/26/17 20:58 67 16 99 Nasal Cannula 3.0 32 08/26/17 20:47 71 18 Nasal Cannula 2.0 28 08/26/17 20:46 66 16 95 Nasal Cannula 2.0 28 08/26/17 20:00 97.9 78 19 145/68 93 Nasal Cannula 97.9 08/26/17 19:44 98 Nasal Cannula 3.0 32 08/26/17 19:44 Nasal Cannula 3.0 32 08/26/17 16:00 67 08/26/17 16:00 97.7 66 20 140/64 92 Nasal Cannula 97.7 08/26/17 12:00 58 08/26/17 12:00 97.3 66 20 123/68 90 Nasal Cannula 97.3 08/26/17 10:05 59 16 98 Nasal Cannula 3.0 32 08/26/17 09:54 64 16 93 Room Air Intake and Output 08/26/17 08/27/17 19:00 07:00 Intake Total 450 ml Balance 450 ml Intake Oral 450 ml # Voids 4 6 Laboratory Tests Test 08/27/17 09:35 White Blood Count Pending Red Blood Count Pending Hemoglobin Pending Hematocrit Pending Mean Corpuscular Volume Pending Mean Corpuscular Hemoglobin Pending Mean Corpuscular Hemoglobin Concent Pending Red Cell Distribution Width Pending Platelet Count Pending Mean Platelet Volume Pending Neutrophils (%) (Auto) Pending Lymphocytes (%) (Auto) Pending Monocytes (%) (Auto) Pending Eosinophils (%) (Auto) Pending Basophils (%) (Auto) Pending Sodium Level Pending Potassium Level Pending Chloride Level Pending Carbon Dioxide Level Pending Blood Urea Nitrogen Pending Creatinine Pending Estimat Glomerular Filtration Rate Pending Glucose Level Pending Calcium Level Pending Objective HEAD AND NECK: No JVD LUNGS: Clear CARDIOVASCULAR: Regular S1 and S2 with no gallop or murmur. ABDOMEN: Soft. EXTREMITIES: No pitting edema. Ramesh Han MD August 27, 2017 09:43
[2017-08-27 09:51] LABS: EOSINOPHILS % (AUTO) 7.4 % (0.0-3.0); HEMOGLOBIN 12.6 G/DL (12.0-16.0); LYMPHOCYTES % (AUTO) 24.1 % (20.0-45.0); MEAN CORPUSCULAR VOLUME 90 FL (80-99); MONOCYTES % (AUTO) 7.2 % (1.0-10.0); NEUTROPHILS % (AUTO) 60.4 % (45.0-75.0); PLATELET COUNT 185 K/UL (150-450); RED BLOOD COUNT 4.35 M/UL (4.20-5.40); WHITE BLOOD COUNT 8.1 K/UL (4.8-10.8)
[2017-08-27 09:59] LABS: ANION GAP 3 mmol/L (5-15); BLOOD UREA NITROGEN 15 mg/dL (7-18); CALCIUM 8.3 MG/DL (8.5-10.1); CARBON DIOXIDE 33 MMOL/L (21-32); CHLORIDE 104 MMOL/L (98-107); CREATININE 0.7 MG/DL (0.55-1.30); POTASSIUM 3.9 MMOL/L (3.5-5.1); SODIUM 140 MMOL/L (136-145)
--- NOTE | 2017-08-27 10:19 | Cardiology Report ---
APPROVED REPORT EXAM: Two-dimensional and M-mode echocardiogram with Doppler and color Doppler. INDICATION CAD M-Mode DIMENSIONS IVSd1.7 (0.7-1.1cm)Left Atrium (MM)4.0 (1.6-4.0cm) LVDd4.0 (3.5-5.6cm)Aortic Cusp Exc.1.9 (1.5-2.0cm) PWd1.0 (0.7-1.1cm) IVSs1.7 cm LVDs2.6 (2.5-4.0cm) PWs1.4 cm Technically difficult study due to poor acoustical windows. Normal left ventricular chamber size, systolic function and wall motion to extent visualized. Left ventricular ejection fraction estimated to be 55-60 %. Study quality precludes accurate assessment of regional wall motion. Mild left ventricular hypertrophy. No evidence of pericardial effusion. All other cardiac chamber sizes are within normal limits. Focal aortic valve sclerosis with adequate cusp excursion. Thickened mitral valve leaflets with normal excursion. Mitral annulus and aortic root calcification. Pulmonic valve not well visualized. Normal tricuspid valve structure. IVC dilated at 2.5 cm with slight physiologic collapse suggestive of increased RA pressure. A color flow and spectral Doppler study was performed and revealed: Mild aortic regurgitation. Trace mitral regurgitation. Mitral diastolic velocities suggest reduced left ventricular relaxation c/w mild LV diastolic dysfunction (Grade I). Moderate tricuspid regurgitation. Tricuspid systolic velocities suggests peak right ventricular systolic pressure of 59 mmHg, consistent with moderate to severe pulmonary hypertension. Mild pulmonic regurgitation present.
--- NOTE | 2017-08-27 11:39 | Pulmonology Progress Note ---
Assessment/Plan Assessment/Plan IMPRESSION: 1. COPD. 2. Respiratory improved 3. CHF 4. Elevated troponin. 5. Possible non-STEMI. possible CAD 6. Lower extremity spasm. PLAN respiratory care as is transfer to [facility] for cath optimize fluid status recommend spiriva on discharge but need to assess lung function for further recommendations ok to dc per pulm; will follow as needed impression, plan, and exam edited and reviewed in detail care discussed with RN Subjective Allergies: Coded Allergies: AMPICILLIN (Verified Allergy, Intermediate, 08/26/12) Subjective comfortable no distress overnight rn notes reviewed patient plans to transfer to [facility] for cath Objective Last 24 Hour Vital Signs Date Time Temp Pulse Resp B/P (MAP) Pulse Ox O2 Delivery O2 Flow Rate FiO2 08/27/17 09:28 75 16 98 Nasal Cannula 2.0 08/27/17 09:22 75 18 92 Nasal Cannula 2.0 08/27/17 09:22 Nasal Cannula 2.0 28 08/27/17 09:22 92 Nasal Cannula 2.0 08/27/17 09:22 75 18 Nasal Cannula 2.0 08/27/17 08:54 77 88/35 08/27/17 08:12 98.1 08/27/17 08:00 97.8 78 18 88/35 94 Nasal Cannula 97.8 08/27/17 07:13 98.1 08/27/17 04:00 97.8 78 19 103/60 93 Nasal Cannula 97.8 08/27/17 04:00 71 08/27/17 00:00 98.1 78 19 101/50 93 Nasal Cannula 98.1 08/27/17 00:00 68 08/26/17 21:37 97.7 08/26/17 21:35 67 140/64 08/26/17 20:58 67 16 99 Nasal Cannula 3.0 32 08/26/17 20:47 71 18 Nasal Cannula 2.0 28 08/26/17 20:46 66 16 95 Nasal Cannula 2.0 28 08/26/17 20:00 97.9 78 19 145/68 93 Nasal Cannula 97.9 08/26/17 19:44 98 Nasal Cannula 3.0 32 08/26/17 19:44 Nasal Cannula 3.0 32 08/26/17 16:00 67 08/26/17 16:00 97.7 66 20 140/64 92 Nasal Cannula 97.7 08/26/17 12:00 58 08/26/17 12:00 97.3 66 20 123/68 90 Nasal Cannula 97.3 Intake and Output 08/26/17 08/27/17 19:00 07:00 Intake Total 450 ml Balance 450 ml Intake Oral 450 ml # Voids 4 6 Objective HEENT: Overall negative. The patient's extraocular movements are grossly intact. NECK: No jugular venous distention. LUNGS: Moderate breath sounds. no rhonchi or wheezes. CARDIAC: Normal S1 and S2. Regular rhythm without murmurs, rubs, or gallops. ABDOMEN: Soft, nontender, nondistended. EXTREMITIES: No cyanosis, clubbing, or edema. NEUROLOGIC: Grossly nonfocal. SKIN: Without any rashes. alert and comfortable Laboratory Tests 08/27/17 09:35: White Blood Count 8.1, Red Blood Count 4.35, Hemoglobin 12.6, Hematocrit 39.0, Mean Corpuscular Volume 90, Mean Corpuscular Hemoglobin 29.0, Mean Corpuscular Hemoglobin Concent 32.4, Red Cell Distribution Width 13.0, Platelet Count 185, Mean Platelet Volume 6.0L, Neutrophils (%) (Auto) 60.4, Lymphocytes (%) (Auto) 24.1, Monocytes (%) (Auto) 7.2, Eosinophils (%) (Auto) 7.4H, Basophils (%) (Auto ) 1.0, Sodium Level 140, Potassium Level 3.9, Chloride Level 104, Carbon Dioxide Level 33H, Anion Gap 3L, Blood Urea Nitrogen 15, Creatinine 0.7, Estimat Glomerular Filtration Rate , Glucose Level 134H, Calcium Level 8.3L Current Medications Medications (Trade) Dose Ordered Sig/[place] Route PRN Reason Start Time Stop Time Status Last Admin Dose Admin Acetaminophen (Tylenol) 650 mg Q4H PRN ORAL Mild Pain (Pain Scale 1-3) 08/22/17 16:00 09/21/17 15:59 08/26/17 09:22 Acetaminophen/ Hydrocodone Bitart ([place] 5/325) 1 tab Q6H PRN ORAL Moderate Pain (Pain Scale 4-6) 08/22/17 21:00 08/29/17 20:59 08/27/17 07:13 Albuterol Sulfate (Proventil) 2.5 mg Q12H PRN HHN Shortness of Breath 08/22/17 16:00 08/27/17 15:59 Albuterol/ Ipratropium (Albuterol/ Ipratropium) 3 ml BIDRT HHN 08/22/17 22:00 08/27/17 21:59 08/27/17 09:22 Aspirin (ASA) 81 mg DAILY ORAL 08/23/17 09:00 09/22/17 08:59 08/27/17 08:51 Atorvastatin Calcium (Lipitor) 40 mg BEDTIME ORAL 08/22/17 21:00 09/21/17 20:59 08/26/17 21:35 Clopidogrel Bisulfate (Plavix) 75 mg DAILY ORAL 08/23/17 09:00 09/22/17 08:59 08/27/17 08:51 Dextrose (Dextrose 50%) 25 ml STAT PRN IV Hypoglycemia 08/22/17 16:00 09/21/17 15:59 Dextrose (Dextrose 50%) 50 ml STAT PRN IV Hypoglycemia 08/22/17 16:00 09/21/17 15:59 Docusate Sodium (Colace) 100 mg EVERY 12 HOURS ORAL 08/22/17 21:00 09/21/17 20:59 08/26/17 21:35 Gabapentin (Neurontin) 300 mg THREE TIMES A DAY ORAL 08/22/17 18:00 09/21/17 17:59 08/27/17 08:51 Lorazepam (Ativan) 2 mg Q6HR PRN ORAL For Anxiety 08/23/17 10:15 08/30/17 10:14 08/27/17 01:08 Metoprolol Tartrate (Lopressor) 25 mg Q12HR ORAL 08/22/17 21:00 09/21/17 20:59 08/26/17 21:35 Ondansetron HCl (Zofran) 4 mg Q6H PRN IVP Nausea & Vomiting 08/22/17 16:00 09/21/17 15:59 08/26/17 21:37 Trazodone HCl (Desyrel) 100 mg BEDTIME ORAL 08/22/17 21:00 09/21/17 20:59 08/26/17 21:35 José Brown MD August 27, 2017 11:39
[2017-08-27 12:00] VITALS: BP 103/42
--- NOTE | 2017-08-27 15:59 | General Progress Note ---
Assessment/Plan Assessment/Plan [place] Anxiety disorder, panic attack. PLAN: 1. The patient will be started on Ativan p.r.n. Subjective Date patient seen: August 27, 2017 Neurologic/Psychiatric: Reports: anxiety, depressed, emotional problems Allergies: Coded Allergies: AMPICILLIN (Verified Allergy, Intermediate, 08/26/12) Objective Last 24 Hour Vital Signs Date Time Temp Pulse Resp B/P (MAP) Pulse Ox O2 Delivery O2 Flow Rate FiO2 08/27/17 12:00 75 08/27/17 12:00 97.9 72 18 103/42 93 Nasal Cannula 97.9 08/27/17 09:28 75 16 98 Nasal Cannula 2.0 08/27/17 09:22 75 18 92 Nasal Cannula 2.0 08/27/17 09:22 Nasal Cannula 2.0 08/27/17 09:22 92 Nasal Cannula 2.0 08/27/17 09:22 75 18 Nasal Cannula 2.0 08/27/17 08:54 77 88/35 08/27/17 08:12 98.1 08/27/17 08:00 97.8 78 18 88/35 94 Nasal Cannula 97.8 08/27/17 08:00 82 08/27/17 07:13 98.1 08/27/17 04:00 97.8 78 19 103/60 93 Nasal Cannula 97.8 08/27/17 04:00 71 08/27/17 00:00 98.1 78 19 101/50 93 Nasal Cannula 98.1 08/27/17 00:00 68 08/26/17 21:37 97.7 08/26/17 21:35 67 140/64 08/26/17 20:58 67 16 99 Nasal Cannula 3.0 32 08/26/17 20:47 71 18 Nasal Cannula 2.0 08/26/17 20:46 66 16 95 Nasal Cannula 2.0 28 08/26/17 20:00 97.9 78 19 145/68 93 Nasal Cannula 97.9 08/26/17 19:44 98 Nasal Cannula 3.0 32 08/26/17 19:44 Nasal Cannula 3.0 32 08/26/17 16:00 67 08/26/17 16:00 97.7 66 20 140/64 92 Nasal Cannula 97.7 Intake and Output 08/26/17 08/27/17 19:00 07:00 Intake Total 450 ml Balance 450 ml Intake Oral 450 ml # Voids 4 6 Laboratory Tests 08/27/17 09:35: White Blood Count 8.1, Red Blood Count 4.35, Hemoglobin 12.6, Hematocrit 39.0, Mean Corpuscular Volume 90, Mean Corpuscular Hemoglobin 29.0, Mean Corpuscular Hemoglobin Concent 32.4, Red Cell Distribution Width 13.0, Platelet Count 185, Mean Platelet Volume 6.0L, Neutrophils (%) (Auto) 60.4, Lymphocytes (%) (Auto) 24.1, Monocytes (%) (Auto) 7.2, Eosinophils (%) (Auto) 7.4H, Basophils (%) (Auto ) 1.0, Sodium Level 140, Potassium Level 3.9, Chloride Level 104, Carbon Dioxide Level 33H, Anion Gap 3L, Blood Urea Nitrogen 15, Creatinine 0.7, Estimat Glomerular Filtration Rate , Glucose Level 134H, Calcium Level 8.3L Height (Feet): 5 Height (Inches): 1.00 Weight (Pounds): 152 General Appearance: alert Neurologic: oriented x 3, responsive, depressed affect Adele Hernandez M.D. August 27, 2017 15:59
[2017-08-27 16:00] VITALS: BP 121/62
[2017-08-27 20:00] VITALS: BP 143/69
[2017-08-27] MEDS: Atorvastatin 20mg tab ORAL SCH (21:10)
[2017-08-27] MEDS: TraZODone 100mg tab ORAL SCH (21:11)
[2017-08-28] VITALS: BP 103/50
[2017-08-28] MEDS: Norco 5mg/325mg tab ORAL PRN (03:46)
[2017-08-28 04:00] VITALS: BP 102/60
--- NOTE | 2017-08-28 09:36 | Diagnostic Imaging Report ---
APPROVED REPORT CPT Code: 44921 Present Symptoms Shortness of breath BILATERAL: Imaging reveals a patent deep venous system bilaterally. There is no evidence of thrombus within the femoral, popliteal or tibial segments. The greater saphenous veins are also within normal limits. Doppler indicates normal spontaneous flow within these segments.
--- NOTE | 2017-08-28 22:59 | General Progress Note ---
Assessment/Plan Assessment/Plan [place] Anxiety disorder, panic attack. PLAN: 1. The patient will be started on Ativan p.r.n. Subjective Date patient seen: August 28, 2017 Neurologic/Psychiatric: Reports: anxiety, depressed, emotional problems Allergies: Coded Allergies: AMPICILLIN (Verified Allergy, Intermediate, 08/26/12) Objective Last 24 Hour Vital Signs Date Time Temp Pulse Resp B/P (MAP) Pulse Ox O2 Delivery O2 Flow Rate FiO2 08/28/17 04:45 97.8 08/28/17 04:00 60 08/28/17 04:00 97.8 60 19 102/60 94 Nasal Cannula 97.8 08/28/17 03:46 97.7 08/28/17 00:00 70 08/28/17 00:00 97.7 79 19 103/50 94 Nasal Cannula 97.7 Intake and Output 08/27/17 08/28/17 19:00 07:00 Intake Total 360 ml Output Total 600 ml 450 ml Balance -240 ml -450 ml Intake Oral 360 ml Output Urine Total 600 ml 450 ml # Voids 3 Height (Feet): 5 Height (Inches): 1.00 Weight (Pounds): 152 General Appearance: WD/WN, no apparent distress, alert Adele Hernandez M.D. August 28, 2017 22:59
--- NOTE | 2017-08-29 17:40 | Discharge Summary ---
Discharge Summary Discharge Summary _ DATE OF ADMISSION: 08/22/2017 DATE OF DISCHARGE: 08/28/2017 CONSULTANTS: Dr. Adele Han BRIEF HOSPITAL COURSE: Patient is a 71-year-old female, who came from home, presented to the emergency room complaining of several days of spasms in the lower legs. She presented to the emergency room several times in the past with similar complaints. She has a known history of COPD and was mildly short of breath. Her main complaint and concern was the lower extremity/legs with spasms. She denied chest pain, no nausea, no vomiting, or diarrhea. She has medical history significant for hypertension, coronary artery disease, hyperlipidemia, COPD. On evaluation at ED, blood work showed elevated troponin level 1.651. She was given aspirin. Urine toxicology was positive for opiates. Chest x-ray showed borderline cardiomegaly, mild congestion with questionable effusion on the left lower lobe. She was admitted for evaluation of shortness of breath and elevated troponin and leg spasms. She was seen by lumber tripper. EKG was suggestive of inferior wall ischemia. Troponins were monitored and was placed on aspirin, Plavix, Lipitor and Lopressor. She had an echocardiogram done that showed ejection fraction of 55% . She initially refused transfer for cardiac cath. She was given medical therapy. She was seen by blasting cap assembler. She was given supportive care and was given albuterol/ipratropium respiratory treatments. She was started on IV steroids. Venous duplex of lower extremity was negative for DVT. On arrival to ED, she had O2 saturation of 80%, she was tachycardic 119, RR was 30. Respiratory status eventually stabilized. She had episodes of anxiety and shakiness. She was recently started on Requip. She underwent psychiatric evaluation and was diagnosed with anxiety disorder/ panic attack. Requip was discontinued. She was given Ativan prn. She eventually changed her mind and agreed to cardiac workup. She was eventually transferred to [facility]. FINAL DIAGNOSES: Acute coronary syndrome/non-ST elevated CO Acute COPD exacerbation Restless leg Hypertension Moderate pulmonary hypertension Severe back pain with questionable disc rupture history Lower extremity spasms Acute respiratory distress/insufficiency DISPOSITION: Patient was transferred to [facility]. I have been assigned to dictate discharge summary on this account, and I was not involved in the patient's management. Dori Britton NP August 29, 2017 17:40
== END 2017-08-28 06:20 | disposition short-term general hospital (02) | DRG 281 ==
LOC: EDBEDREQ 12:21 → EMR 12:57 → 2E 12:59 → EDBEDREQ 14:30
DX: I21.4 Non-ST elevation (NSTEMI) myocardial infarction (principal); J44.1 Chronic obstructive pulmonary disease with (acute) exacerbation; I25.10 Atherosclerotic heart disease of native coronary artery without angina pectoris; E78.5 Hyperlipidemia, unspecified; Z88.0 Allergy status to penicillin; Z85.41 Personal history of malignant neoplasm of cervix uteri; M54.5 Low back pain; M62.838 Other muscle spasm; F32.9 Major depressive disorder, single episode, unspecified; F41.0 Panic disorder [episodic paroxysmal anxiety]; G25.81 Restless legs syndrome; I27.20 Pulmonary hypertension, unspecified; R06.03 Acute respiratory distress; I10 Essential (primary) hypertension
CPT/HCPCS: 36415; 71045; 80048; 80053; 80061; 80307; 82550; 82553; 84484; 85025; 87081; 93005; 93306; 93970; 94640; 94664; 94760; 99285; J2405; J7620

== ENCOUNTER 2019-08-13 12:32 | Emergency (ER) | payer MEDICARE, MEDICAID ==
[~2019-08-13] VITALS: Ht 154.9 cm; Wt 65.3 kg
[~2019-08-13 12:32] MED LIST changes: +ASPIRIN325 MG ORAL; +ATORVASTATIN CA40 MG ORAL; +BUDESONIDE0.5 GM PO; +CLOPIDOGREL75 MG ORAL; +VENTOLIN HFA18 GM INH
[2019-08-13 12:38] VITALS: BP 118/67
[2019-08-13] MEDS ORDERED: Ketorolac 30mg Inj IV ONE (13:00)
[2019-08-13] MEDS ORDERED: Morphine Sulfate 2mg/ml Inj(IV/IM USE ONLY) IVP ONE (13:00)
--- NOTE | 2019-08-13 13:05 | Emergency Room Report ---
History of Present Illness General Chief Complaint: Neck Pain Source: Patient Present Illness HPI Disclaimer: Please note that this report is being documented using [employer] technology. This can lead to erroneous entry secondary to incorrect interpretation by the dictating instrument. HPI: 73-year-old female with history of COPD presents for evaluation of neck pain. Symptoms began yesterday. The patient woke up with a stiff neck with pain worse on the right side and difficulty with rotation and flexion as well as extension. Denies any trauma. Initially was improving throughout the day however when she awoke this morning states she could not move her neck and it was deviated to the left side. Pain is excruciating when turning to the right side but feels better when extending to the left. Denies any difficulty swallowing, difficulty breathing, pain at the shoulder, numbness, tingling, weakness in the extremities. No prior history of injury. She has been wearing an [id number] supportive neck brace without improvement and applying medicated rubs and heating patches without significant improvement in her symptoms. PMH: COPD, oxygen dependent scoliosis, compression fractures PSH: Reviewed Allergies: Ampicillin Social Hx: Denies drug or alcohol abuse Allergies: Coded Allergies: AMPICILLIN (Verified Allergy, Intermediate, 08/26/12) COVID-19 Screening Contact w/high risk pt: No Recent Travel to affected area: No Experienced COVID-19 symptoms?: No COVID-19 Testing performed LARD REFINER: No Nursing Documentation-PMH Past Medical History: No History, Except For Hx Cardiac Problems: Yes - stents x2 Hx Hypertension: No Hx Pacemaker: No Hx Asthma: Yes Hx COPD: Yes Hx Diabetes: No Hx Cancer: Yes - Cervical Cancer Hx Gastrointestinal Problems: No Hx Dialysis: No Hx Neurological Problems: Yes - chronic back pain; ruptured disk Hx Cerebrovascular Accident: Yes Hx Seizures: No Review of Systems All Other Systems: negative except mentioned in HPI Physical Exam Vital Signs Date Time Temp Pulse Resp B/P (MAP) Pulse Ox O2 Delivery O2 Flow Rate FiO2 08/13/19 12:38 98.8 76 17 118/67 (84) 93 Nasal Cannula 4.0 General: Awake and alert, appears moderately uncomfortable HEENT: NC/AT. EOMI. Neck: Supple, trachea midline, no masses. Resp: Normal work of breathing Skin: Intact. No abrasions, laceration or rash over the exposed skin MSK: Normal tone and bulk. Moving all extremities. No obvious deformity. Neuro: Awake and alert. Mentating appropriately Spine: No tenderness step-off or deformity in the cervical or thoracic spine. Significant paraspinal tenderness from the insertion point at the base of the cranium extending over the trapezius over the right shoulder. Difficulty with rotation to the right, better rotation to the left. Range of motion is limited on flexion extension due to pain. Medical Decision Making Diagnostic Impression: Primary Impression: Muscle spasms of neck Additional Impression: Cervical strain ER Course Is a 73-year-old female presenting for evaluation of right-sided neck pain and stiffness. No trauma reported. Consistent with a cervical strain or spasm although torticollis, pathologic fracture, dislocation, mass also on the differential. Patient does not yet have full torticollis but does appear moderately uncomfortable. Treated with analgesics, benzodiazepines, medicated patch. An x-ray was obtained due to patient's history of significant degenerative joint disease and compression fractures. No evidence of acute compression fracture but there is significant degenerative change. Likely chronic. No acute intervention needed. Patient will be discharged with muscle relaxants, NSAIDs and lidocaine patches. We will follow-up with her PMD. Discussed reasons to return to the emergency department. She understands and agrees with the treatment plan. CT/MRI/US Diagnostic Results CT/MRI/US Diagnostic Results : Impression Procedure: XRAY C Spine 2-3v EXAM: X-RAY XRAY C Spine 2-3v CLINICAL HISTORY: Neck pain. COMPARISON: None FINDINGS: Total of 3 views of the cervical spine were obtained. Diffuse spondylosis of the cervical spine noted. There is degenerative anterolisthesis of C3 on C4. Slight degenerative retrolisthesis of C5 on C6 noted. Alignment is otherwise mostly anatomic. There is diffuse osteopenia. No compression deformity demonstrated. This space narrowing noted at numerous levels. Anterior spurring from C4 through C7 demonstrated. Odontoid appears intact. There is no prevertebral soft tissue swelling. IMPRESSION: DIFFUSE SPONDYLOSIS WITH MULTILEVEL DEGENERATIVE LISTHESIS. GENERALIZED OSTEOPENIA. NO RADIOGRAPHIC EVIDENCE OF ACUTE COMPRESSION DEFORMITY OR SOFT TISSUE SWELLING. Last Vital Signs Date Time Temp Pulse Resp B/P (MAP) Pulse Ox O2 Delivery O2 Flow Rate FiO2 08/13/19 12:38 98.8 76 17 118/67 (84) 93 Nasal Cannula 4.0 Disposition: HOME, SELF-CARE Condition: Stable Scripts Lidocaine Patch* (Lidoderm Patch*) 1 Each Adh..patch 1 PATCH TOPIC DAILY, #10 PATCH Patch(es) may remain in place for up to 12 hours in any 24-hour period. Prov: Saurabh Taylor MD 08/13/19 Cyclobenzaprine Hcl* (FLEXERIL*) 10 Mg Tablet 10 MG ORAL TID PRN for Muscle Spasm, #20 TAB Prov: Saurabh Taylor MD 08/13/19 Ibuprofen* (MOTRIN*) 600 Mg Tablet 600 MG ORAL Q6H PRN for For Pain, #30 TAB 0 Refills Prov: Saurabh Taylor MD 08/13/19 Saurabh Taylor MD August 13, 2019 13:05
[2019-08-13] MEDS ORDERED: Ketorolac 30mg Inj IM ONE (13:15)
[2019-08-13] MEDS ORDERED: CYCLOBENZAPRINE10 MG ORAL (13:32)
[2019-08-13] MEDS ORDERED: LIDODERM700 M1 TOPIC (13:32)
[2019-08-13] MEDS ORDERED: IBUPROFEN600 M1 ORAL (13:32)
[2019-08-13 15:40] VITALS: BP 118/67
--- NOTE | 2019-08-14 16:30 | Diagnostic Imaging Report ---
EXAM: X-RAY XRAY C Spine 2-3v CLINICAL HISTORY: Neck pain. COMPARISON: None FINDINGS: Total of 3 views of the cervical spine were obtained. Diffuse spondylosis of the cervical spine noted. There is degenerative anterolisthesis of C3 on C4. Slight degenerative retrolisthesis of C5 on C6 noted. Alignment is otherwise mostly anatomic. There is diffuse osteopenia. No compression deformity demonstrated. This space narrowing noted at numerous levels. Anterior spurring from C4 through C7 demonstrated. Odontoid appears intact. There is no prevertebral soft tissue swelling. IMPRESSION: DIFFUSE SPONDYLOSIS WITH MULTILEVEL DEGENERATIVE LISTHESIS. GENERALIZED OSTEOPENIA. NO RADIOGRAPHIC EVIDENCE OF ACUTE COMPRESSION DEFORMITY OR SOFT TISSUE SWELLING.
== END 2019-08-13 15:40 | disposition home or self-care (01) ==
LOC: EMR 13:17
DX: S16.1XXA Strain of muscle, fascia and tendon at neck level, initial encounter (principal); M62.838 Other muscle spasm; J44.9 Chronic obstructive pulmonary disease, unspecified; J45.909 Unspecified asthma, uncomplicated; X58.XXXA Exposure to other specified factors, initial encounter; Y93.9 Activity, unspecified; Y92.013 Bedroom of single-family (private) house as the place of occurrence of the external cause; Z88.1 Allergy status to other antibiotic agents; Z86.73 Personal history of transient ischemic attack (TIA), and cerebral infarction without residual deficits; Z85.41 Personal history of malignant neoplasm of cervix uteri; Z95.818 Presence of other cardiac implants and grafts
CPT/HCPCS: 72040; 96372; 96374; 99284; J1885; J2270

== ENCOUNTER 2019-09-08 16:35 | Emergency (ER) | payer MEDICARE, MEDICAID ==
[~2019-09-08] VITALS: Ht 154.9 cm; Wt 67.6 kg
[~2019-09-08 16:35] MED LIST changes: +CYCLOBENZAPRINE10 MG ORAL; +IBUPROFEN600 M1 ORAL; +LIDODERM700 M1 TOPIC
[2019-09-08] MEDS ORDERED: Omnipaque-300 100ml vial INJ PRN (17:30)
[2019-09-08] MEDS ORDERED: fentaNYL 100 mcg/2 mL IV ONE (17:30)
[2019-09-08 17:51] VITALS: BP 135/67
--- NOTE | 2019-09-08 17:56 | Emergency Room Report ---
History of Present Illness General Chief Complaint: Pain Source: Patient Present Illness HPI Patient is a 73-year-old lady past medical history of COPD oxygen dependent on 4 L nasal cannula as well as bilateral hip replacement who presents the ER complaining of right hip pain and swelling for the past week. She denies any trauma. Patient walks with a walker. Patient denies any fever or chills. She complains of shortness of breath due to exertion which she states is chronic due to her COPD. She denies any chest pain. She denies any abdominal pain nausea or vomiting. Patient was brought in by her . Allergies: Coded Allergies: AMPICILLIN (Verified Allergy, Intermediate, 08/26/12) COVID-19 Screening Contact w/high risk pt: No Recent Travel to affected area: No Experienced COVID-19 symptoms?: No COVID-19 Testing performed BOOK REVIEWER: No Patient History Last Menstrual Period: n/a Reviewed Nursing Documentation: PMH: Agreed; PSxH: Agreed Nursing Documentation-PMH Past Medical History: No History, Except For Hx Cardiac Problems: Yes - stents x2 Hx Hypertension: No Hx Pacemaker: No Hx Asthma: Yes Hx COPD: Yes Hx Diabetes: No Hx Cancer: Yes - Cervical Cancer Hx Gastrointestinal Problems: No Hx Dialysis: No Hx Neurological Problems: Yes - chronic back pain; ruptured disk Hx Cerebrovascular Accident: Yes Hx Seizures: No Review of Systems All Other Systems: negative except mentioned in HPI Physical Exam Vital Signs Date Time Temp Pulse Resp B/P (MAP) Pulse Ox O2 Delivery O2 Flow Rate FiO2 09/08/19 16:52 98.8 90 18 135/67 (89) 87 Room Air Sp02 EP Interpretation: reviewed, abnormal General Appearance: alert, GCS 15, non-toxic, mild distress Head: normocephalic, atraumatic Eyes: bilateral eye normal inspection, bilateral eye PERRL ENT: hearing grossly normal, normal pharynx, no angioedema, normal voice Neck: full range of motion, supple/symm/no masses Respiratory: chest non-tender, other - Tachypneic with scattered wheezes Cardiovascular #1: regular rate, rhythm, no edema Cardiovascular #2: 2+ carotid (R), 2+ carotid (L) Gastrointestinal: normal bowel sounds, non tender, soft, non-distended, no guarding, no rebound Rectal: deferred Genitourinary: no CVA tenderness Musculoskeletal: other - Bilateral upper lateral femoral healed surgical incision sites from hip replacement, right lateral hip swelling and tenderness to palpation with no erythema Neurologic: motor strength/tone normal, chha III-XII nml as tested, oriented x3 , sensory intact Psychiatric: no suicidal/homicidal ideation Skin: no rash Lymphatic: no adenopathy Procedures Critical Care Time Critical Care Time Total critical care time: Approximately 35 minutes. Due to a high probability of clinically significant, life threatening deterioration, the patient required my highest level of preparedness to intervene emergently and I personally spent this critical care time directly and personally managing the patient. This critical care time included obtaining a history; examining the patient; pulse oximetry; ordering and review of studies; arranging urgent treatment with development of a management plan; evaluation of patient's response to treatment ; frequent reassessment; and, discussions with other providers.This critical care time was performed to assess and manage the high probability of imminent, life-threatening deterioration that could result in multi-organ failure. It was exclusive of separately billable procedures and treating other patients and teaching time. Please see MDM section and the rest of the note for further information on patient assessment and treatment. Medical Decision Making Diagnostic Impression: Primary Impression: COPD with acute exacerbation Additional Impressions: Hypoxia Right hip pain ER Course Patient was to be admitted for COPD exacerbation. She has been spending a CT of her right lower extremity. Unclear etiology of her right hip pain. The patient is of adult age and has sound mind with no evidence of altered mental status suggesting metabolic or infections etiologies. I explained in layman's terms the risk of leaving against medical advise including and significant comorbidity. The patient was given reasonable options. This was explained in front of them and the bedside nurse Lesly NOONAN. The AMA for was signed and witnessed by a nurse and patient. Laboratory Tests Test 09/08/19 17:20 09/08/19 17:45 09/08/19 19:00 Arterial Blood pH 7.394 (7.350-7.450) Arterial Blood Partial Pressure CO2 47.4 mmHg (35.0-45.0) H Arterial Blood Partial Pressure O2 49.9 mmHg (75.0-100.0) Arterial Blood HCO3 28.3 mmol/L (22.0-26.0) H Arterial Blood Oxygen Saturation 85.3 % (95-100) *L Arterial Blood Base Excess 2.7 (-2-2) H Home Test Positive White Blood Count 9.0 K/UL (4.8-10.8) Red Blood Count 4.49 M/UL (4.20-5.40) Hemoglobin 12.4 G/DL (12.0-16.0) Hematocrit 40.9 % (37.0-47.0) Mean Corpuscular Volume 91 FL (80-99) Mean Corpuscular Hemoglobin 27.6 PG (27.0-31.0) Mean Corpuscular Hemoglobin Concent 30.3 G/DL (32.0-36.0) L Red Cell Distribution Width 13.2 % (11.6-14.8) Platelet Count 219 K/UL (150-450) Mean Platelet Volume 5.9 FL (6.5-10.1) L Neutrophils (%) (Auto) 49.4 % (45.0-75.0) Lymphocytes (%) (Auto) 31.5 % (20.0-45.0) Monocytes (%) (Auto) 9.4 % (1.0-10.0) Eosinophils (%) (Auto) 6.7 % (0.0-3.0) H Basophils (%) (Auto) 3.0 % (0.0-2.0) H Prothrombin Time 12.6 SEC (9.30-11.50) H Prothrombin Time INR 1.2 (0.9-1.1) H Activated Partial Thromboplast Time 19 SEC (23-33) L Sodium Level 139 MMOL/L (136-145) Potassium Level 4.2 MMOL/L (3.5-5.1) Chloride Level 101 MMOL/L (98-107) Carbon Dioxide Level 27 MMOL/L (21-32) Anion Gap 11 mmol/L (5-15) Blood Urea Nitrogen 17 mg/dL (7-18) Creatinine 0.7 MG/DL (0.55-1.30) Estimated Glomerular Filtration Rate > 60 mL/min (>60) Glucose Level 98 MG/DL (74-106) Lactic Acid Level 0.80 mmol/L (0.4-2.0) Calcium Level 9.7 MG/DL (8.5-10.1) Magnesium Level 1.8 MG/DL (1.8-2.4) Total Bilirubin 0.4 MG/DL (0.2-1.0) Aspartate Amino Transferase (AST) 18 U/L (15-37) Alanine Aminotransferase (ALT) 24 U/L (12-78) Alkaline Phosphatase 81 U/L (46-116) Troponin I 0.008 ng/mL (0.000-0.056) C-Reactive Protein, Quantitative 0.8 mg/dL (0.00-0.90) Total Protein 6.9 G/DL (6.4-8.2) Albumin 4.0 G/DL (3.4-5.0) Globulin 2.9 g/dL Albumin/Globulin Ratio 1.4 (1.0-2.7) Erythrocyte Sedimentation Rate 32 MM/HR (0-30) H Chest X-Ray Diagnostic Results Chest X-Ray Diagnostic Results : Chest X-Ray Ordered: Yes # of Views/Limited/Complete: 1 View Indication: Shortness of Breath EP Interpretation: Yes Interpretation: no consolidation, no effusion, no pneumothorax Impression: No acute disease Electronically Signed by: Maryann Hernandez MD Last Vital Signs Date Time Temp Pulse Resp B/P (MAP) Pulse Ox O2 Delivery O2 Flow Rate FiO2 09/08/19 16:52 98.8 90 18 135/67 (89) 87 Room Air Disposition: AGAINST MEDICAL ADVICE Condition: Unknown Referrals: NOT CHOSEN [place]/,REFERRING (PCP) Maryann Hernandez M.D. Sep 08, 2019 17:56
[2019-09-08 17:59] LABS: EOSINOPHILS % (AUTO) 6.7 % (0.0-3.0); HEMATOCRIT 40.9 % (37.0-47.0); HEMOGLOBIN 12.4 G/DL (12.0-16.0); LYMPHOCYTES % (AUTO) 31.5 % (20.0-45.0); MEAN CORPUSCULAR VOLUME 91 FL (80-99); MONOCYTES % (AUTO) 9.4 % (1.0-10.0); NEUTROPHILS % (AUTO) 49.4 % (45.0-75.0); PLATELET COUNT 219 K/UL (150-450); RED BLOOD COUNT 4.49 M/UL (4.20-5.40); RED CELL DISTRIBUTION WIDTH 13.2 % (11.6-14.8)
[2019-09-08] MEDS ORDERED: Albuterol 90mcg Inhaler 8gm INH PRN (18:00)
[2019-09-08] MEDS ORDERED: Solu-MEDROL 125mg Inj IVP SCH (18:00)
--- NOTE | 2019-09-08 18:00 | NUR ---
ED Nurse Note:pt. came from home with c/o rght hip pain and swelling, she had hip replacement surgery long ago, pt. is A/Ox4, VSS
[2019-09-08 18:15] LABS: ANION GAP 11 mmol/L (5-15); BLOOD UREA NITROGEN 17 mg/dL (7-18); CALCIUM 9.7 MG/DL (8.5-10.1); CARBON DIOXIDE 27 MMOL/L (21-32); CHLORIDE 101 MMOL/L (98-107); CREATININE 0.7 MG/DL (0.55-1.30); POTASSIUM 4.2 MMOL/L (3.5-5.1); SODIUM 139 MMOL/L (136-145)
[2019-09-08 18:19] LABS: ALANINE AMINOTRANSFERASE 24 U/L (12-78); ALBUMIN/GLOBULIN RATIO 1.4 (1.0-2.7); ALKALINE PHOSPHATASE 81 U/L (46-116); ASPARTATE AMINO TRANSFERASE 18 U/L (15-37); BILIRUBIN,TOTAL 0.4 MG/DL (0.2-1.0)
[2019-09-08 18:38] LABS: INR 1.2 (0.9-1.1)
--- NOTE | 2019-09-08 19:15 | NUR ---
Note rhiannon in EDM - 09/08/19 at 2012 by ANDREW ED Nurse Note: Patient suctioned with yanker as thick mucus was down the right side of her face. Pillow provided ro prop neck in anterior position. VRE sample taken from stoma and sent down to lab along with MRSA nasal specimen. Will continue to monitor for transport to floor.
--- NOTE | 2019-09-08 19:20 | NUR ---
ED Nurse Note:pt. was given pain meds AND IV fluids pt. was placed on court recording monitor
--- NOTE | 2019-09-08 19:36 | Diagnostic Imaging Report ---
History: SOB Exam: XR CXR 1 VIEW Comparison: FINDINGS: The lungs are clear. The pulmonary vascularity appears within limits. Cardiac and mediastinal contours appear within limits. Visualized osseous structures appear within limits. IMPRESSION: No evidence of acute disease.
[2019-09-08 19:46] VITALS: BP 139/62
--- NOTE | 2019-09-08 20:43 | Diagnostic Imaging Report ---
History: ABD PAIN Exam: CT ABDOMEN + PELVIS Without Contrast Technique more: CTDI is 6.20 mGy and DLP is 389.30 mGy-cm. Technique more: One or more of the following dose reduction techniques were used: automated exposure control, adjustment of the mA and/or kV according to patient size, use of iterative reconstruction technique. Comparison: None available FINDINGS: Note of pulmonary emphysema and chronic interstitial changes. Right coronary calcification or stent. [place] artifact from bilateral hip replacements limits evaluation. Abdominal solid organs, gallbladder and abdominal aorta appear within limits on noncontrast imaging. Aortoiliac atherosclerotic calcification. No bowel dilation or free air. No evidence of free fluid identified. Thoracolumbar curvature and multilevel spondylosis/discogenic change. IMPRESSION: No evidence of acute process on noncontrast imaging.
[2019-09-08 21:55] VITALS: BP 143/65
[2019-09-08 21:56] VITALS: BP 143/65
--- NOTE | 2019-09-08 22:00 | NUR ---
AMA:pt. signed ROYAL ISBELL MD spore to pt. regaurding her decesion SEE AMA FORM.
--- NOTE | 2019-09-09 08:32 | Diagnostic Imaging Report ---
Indication: Pain Technique: One view of the pelvis, 2 views of the right hip Comparison: none Findings: There are bilateral hip arthroplasties in place. These appear well aligned, no worrisome periprosthetic lucency. No acute fractures. No dislocations. There are degenerative changes of the lower lumbar spine. Impression: No acute process
--- NOTE | 2019-09-09 08:34 | Diagnostic Imaging Report ---
Indication: Reason For Exam: PAIN Technique: Grayscale and duplex images of the right lower extremity veins Comparison: 08/23/2018 Findings: On the right, grayscale and duplex images demonstrate no evidence of intraluminal thrombus. Normal phasic Doppler waveforms, demonstrating normal augmentation response and no evidence of valvular insufficiency. Greater saphenous vein(s) and tibial veins are patent. Normal compressibility. No significant change Impression: Negative for evidence of lower extremity deep venous thrombosis on the right
== END 2019-09-08 22:10 | disposition left against medical advice (07) ==
LOC: EMR 17:03 → EDBEDREQ 20:31 → CANBEDREQ 22:02 → EMR 22:10
DX: J44.1 Chronic obstructive pulmonary disease with (acute) exacerbation (principal); M25.551 Pain in right hip; R09.02 Hypoxemia; Z95.5 Presence of coronary angioplasty implant and graft; Z85.41 Personal history of malignant neoplasm of cervix uteri; Z86.73 Personal history of transient ischemic attack (TIA), and cerebral infarction without residual deficits; Z88.0 Allergy status to penicillin; Z99.81 Dependence on supplemental oxygen
CPT/HCPCS: 36415; 36600; 71045; 73502; 74176; 80053; 82803; 83605; 83735; 84484; 85025; 85610; 85651; 85730; 86140; 87040; 93971; 96361; 96374; 96375; 99291; J2930; J3010; J7030